=== PATIENT | male | born 1935 | race Caucasian/White ===

== ENCOUNTER 2021-08-14 09:16 | Emergency (ER) | payer MEDICARE, SELFPAY ==
--- NOTE | 2021-08-14 | ECG_ITS ---
Test Reason : weakness Blood Pressure : / mmHG Vent. Rate : 080 BPM Atrial Rate : 080 BPM P-R Int : 148 ms QRS Dur : 106 ms QT Int : 372 ms P-R-T Axes : 003 -40 001 degrees QTc Int : 429 ms Sinus rhythm with Premature atrial complexes Left axis deviation Incomplete right bundle branch block Minimal voltage criteria for LVH, may be normal variant ( [place] product ) Abnormal ECG No previous ECGs available Referred By: Generic ED Physician Electronically Signed By:ANTONIETTA HOWE MD
--- NOTE | ~2021-08-14 | XR_ITS ---
EXAMINATION: XR CHEST CLINICAL INFORMATION: Shortness of breath. COMPARISON: None TECHNIQUE: Frontal view of the chest was obtained. FINDINGS: No significant abnormality is noted involving the heart, lungs, mediastinum, bony thorax or soft tissues. XR/XR chest 1V IMPRESSION: No acute cardiopulmonary process.
[2021-08-14 09:27] VITALS: BP 147/85; BP 152/78; PULSE 77; PULSE 78; RESP 20; TEMP 37.7; O2SAT 96; O2SAT 97; BMI 36.1
[2021-08-14 10:49] LABS: Appearance Urine HAZY; Color Urine YELLOW; Glucose Urine UA 250 MG/DL (NEG); Leukocyte Esterase Urine NEG (NEG); Nitrite Urine NEG (NEG); Specific Gravity - Urine 1.025 (1.005-1.025); UACC Culture Trigger NO; Urine Blood 1+ (NEG); Urine Ketones NEG (NEG); Urine Protein TRACE MG/DL (NEG-TRACE)
[2021-08-14 11:01] LABS: COVID-19 Test Positive (Negative); IDNOW Serial# 16C4AD1C
[2021-08-14 11:14] VITALS: BP 150/72; PULSE 82; RESP 22; O2SAT 96
[2021-08-14 11:17] LABS: Squamous Epithelial Cell Urine 1+ /LPF
--- NOTE | 2021-08-14 11:19 | ED_ITS ---
HPI - Weakness General Chief complaint: Weakness Stated complaint: weakness Time Seen by Provider: 08/14/21 11:01 Source: patient and family Mode of arrival: EMS Limitations: no limitations History of Present Illness HPI Narrative: Patient presents to the emergency department accompanied by his significant other. Presents for evaluation of generalized weakness for 3 days, that is becoming progressively worse with intermittent dizziness, additionally having shortness of breath and dyspnea on exertion. he also has a cough, it is unclear whether it is productive or not. He denies any falls or near syncopal episodes. Denies headaches, vision changes, neck pain, nasal congestion, sore throat, chest pain, palpitations, nausea, vomiting, abdominal pain, dysuria, urinary frequency/ urgency / hesitancy, lower extremity edema. His significant other is feeling well. States that he has been vaccinated for COVID- 19 with [employer] x2. Related Data Allergies Allergy/AdvReac Type Severity Reaction Status Date / Time No Known Allergies Allergy Verified 08/14/21 09:33 Review of Systems Review of Systems: Constitutional: Positive generalized weakness. No weight loss, fever, chills HEENT: No visual loss, blurred vision, double vision. No hearing loss, sneezing, congestion, runny nose or sore throat. Skin: No rash or itching. Cardiovascular: No chest pain, chest pressure or chest discomfort. No palpitations or pedal edema. Respiratory: Positive cough. Positive dyspnea on exertion. Positive shortness of breath Gastrointestinal: No anorexia, nausea, vomiting or diarrhea. No abdominal pain or blood in stool. Genitourinary: No burning micturition. No urinary frequency or incontinence. Neurologic: No headache, dizziness, syncope, unilateral weakness, ataxia, numbness or tingling in the extremities. No change in bowel or bladder control. Musculoskeletal: positive body aches Hematologic: No bleeding or bruising. Lymphatics: No enlarged lymph nodes. Psychiatric:No depression or anxiety. Endocrine:No polyuria or polydipsia. Yes all other systems are reviewed and are negative PMFSH Past Medical History Attestation statement: The following information was validated with the patient. Source: old records reviewed Social History Social History Alcohol intake: never Patient Tobacco Use Status: Never used Tobacco Use of substances other than those prescribed or required for medical reasons: No Advance Directives: Yes Advance Directives Information Provided: Yes Advance Directives on File: No Physical Exam Vital Signs: Vital Signs: Last Vital Signs Temp 99.8 F 08/14/21 09:27 Pulse 88 08/14/21 13:50 Resp 12 08/14/21 13:50 BP 150/72 H 08/14/21 11:14 Pulse Ox 97 08/14/21 13:50 BMI result Body Mass Index 36.1 Vital signs have been reviewed and appeared to be correct. Blood pressure elevated.? Heart rate normal.? Respiration rate normal. Temperature normal.? Oxygen saturation normal. Appearance: Alert.?Oriented to person, place and time. No acute distress.?Normal affect. Eyes: Pupils equal, round and reactive to light.?EOMi. No Nystagmus ENT: Pharynx normal.?? Neck: Normal inspection.? Neck supple.?? CVS: Heart sounds normal. Normal heart rate and rhythm.? Pulses normal.?? Respiratory: No respiratory distress.? Lung sounds clear to auscultation bilaterally? in the upper lobes, diminished at the bilateral bases? Abdomen: Soft and non-tender. Normoactive bowel sounds. Skin: Skin warm and dry.? Normal skin color.? Normal skin turgor.?? Extremities: No lower extremity edema.? No calf ttp? Neuro: Moves all extremities spontaneously. Sensation intact bilaterally. CN II- XII intact. No focal neuro deficits. Ambulates with unsteady steady gait. NIH Stroke Scale Time: 11:10 Level of Consciousness: Alert Level of Consciousness Questions: Answers both questions correctly Level of Consciousness Commands: Performs both tasks correctly Best Gaze: Normal Visual: No visual loss Facial Palsy: Normal Motor Arm (Right): No drift Motor Arm (Left): No drift Motor Leg (Right): No drift Motor Leg (Left): No drift Limb Ataxia: Absent Sensory: Normal Best Language: No aphasia Dysarthia: Normal Extinction and Inattention: No abnormality Score: 0 Course Course Course Narrative: patient is an 85-year-old male with a past medical history of hypertension, presenting to emergency department for evaluation of progressively worsening generalized weakness, intermittent dizziness, shortness of breath on exertion. Will obtain CBC to evaluate for leukocytosis/ anemia, CMP to evaluate for abnormal electrolytes /abnormal renal function/ abnormal hepatic function, EKG and troponin to evaluate for ischemia/ACS. Chest x-ray to evaluate for consol idation/ infiltrate/ mass/ pulmonary congestion. Urinalysis to evaluate for infection. COVID-19 and influenza testing. Overall he appears significantly fatigued, is unable to move some cells on the stretcher without assistance. Medicate with Tylenol for low-grade temp at 99.8 degrees, 1 L normal saline IV. Reevaluation(s) Reevaluation #1: CBC is overall unremarkable, no leukocytosis. Mild thrombocytopenia with platel et count 141. CMP overall unremarkable. Troponin 13.2, EKG reveals sinus rhythm premature atrial complexes, incomplete right bundle branch block, with no prior EKG available for comparison, plan to obtain delta troponin. COVID- 19 testing is positive. Chest x-ray reveals no acute cardiopulmonary process. Urinalysis without sign of infection, glucosuria present at 250, and random serum glucose elevated at 124. Time: 13:10 Reevaluation #2: Patient's repeat troponin 17.2, therefore, less than 50% delta, unlikely to be ACS at this time. Ambulatory O2 trial; patient maintained O2 saturation greater than 95%, required no assistance with ambulation, had a slow but steady gait. I spoke with patient about all findings, patient requesting to be discharged home with his significant other. Stable, feels comfortable with his ability to get around at home. Discussed conservative treatment Tylenol as needed for pain, discussed purchasing pulse oximeter to monitor O2 saturation and reviewed reasons to return to the emergency department. discussed the patient was a candidate for, and it is my recommendation for monoclonal antibody infusion or possible oral therapy treatments, reviewed this at length however, he declines referral for treatment. Time: 14:45 [facility] Medical Records Attestation: I reviewed the patient's medical records. Lab Data Attestation: I reviewed the patient's lab results. Result diagrams: 08/14/21 11:18 08/14/21 11:18 Labs: Lab Results 08/14/21 08/14/21 08/14/21 Range/Units 10:38 10:39 11:18 WBC 7.1 (4.8-10.8) X10*3/uL RBC 4.52 L (4.60-5.80) X10*6/uL Hgb 14.3 (14.0-18.0) g/dl Hct 42.5 (42.0-52.0) % MCV 94.0 (80.0-98.0) fL MCH 31.6 (27.0-33.0) pg MCHC 33.6 (31.0-36.0) g/dl RDW 12.6 (11.0-16.0) % Plt Count 141 L (160-400) X10*3/uL MPV 11.2 (9.4-12.4) fL Immature Gran % (Auto) 0.4 (0.0-0.4) % Neut % (Auto) 78.1 H (45-73) % Lymph % (Auto) 9.1 L (20-40) % [place] % (Auto) 9.3 (2-11) % Eos % (Auto) 2.8 (0-4) % Baso % (Auto) 0.3 (0-2) % Lymph # (Auto) 0.6 L (1.2-4.9) X10*3/uL [place] # (Auto) 0.7 (0.1-1.2) X10*3/uL Eos # (Auto) 0.2 (0.0-0.4) X10*3/uL Baso # (Auto) 0.0 (0.0-0.2) X10*3/uL Abs Immat Gran (auto) 0.03 (0.00-0.03) X10*3/uL Absolute Neuts (auto) 5.5 (2.0-8.3) x10*3/uL Absolute Nucleated RBC 0.000 (0.0-0.012) X10*3/uL Nucleated RBC % (auto) 0.0 (0.0-0.2) /100WBC Sodium (135-145) mmol/L Potassium (3.3-5.1) mmol/L Chloride (96-108) mmol/L Carbon Dioxide (22-29) mmol/L Anion Gap (12-20) BUN (9-16) mg/dL Creatinine (0.5-1.4) mg/dL Estim Creat Clear Calc Estimated GFR Random Glucose (60-115) mg/dL Calcium (8.4-10.2) mg/dL Magnesium (1.6-2.6) mg/dL Total Bilirubin (0.0-1.0) mg/dL AST (5-37) U/L ALT (0-40) U/L Alkaline Phosphatase (39-117) U/L Troponin I High Sens (<3.5-35.0) ng/L Total Protein (6.5-8.0) g/dL Albumin (3.5-5.0) g/dL Urine Color YELLOW Urine Appearance HAZY Urine pH 6.0 (5.0-8.0) Ur Specific [place] 1.025 (1.005-1.025) Urine Protein TRACE (NEG-TRACE) MG/DL Urine Glucose (UA) 250 H (NEG) MG/DL Urine Ketones NEG (NEG) MG/DL Urine Blood 1+ H (NEG) Urine Nitrite NEG (NEG) Ur Leukocyte Esterase NEG (NEG) Urine RBC 1-4 (0) /HPF Urine WBC 1-4 (0-4) /HPF Ur Squamous Epith Cells 1+ /LPF Urine Bacteria NONE /LPF COVID-19 ([facility]) Positive A (Negative) COVID-19 Clin Com See Note 08/14/21 08/14/21 08/14/21 Range/Units 11:18 11:18 14:13 WBC (4.8-10.8) X10*3/uL RBC (4.60-5.80) X10*6/uL Hgb (14.0-18.0) g/dl Hct (42.0-52.0) % MCV (80.0-98.0) fL MCH (27.0-33.0) pg MCHC (31.0-36.0) g/dl RDW (11.0-16.0) % Plt Count (160-400) X10*3/uL MPV (9.4-12.4) fL Immature Gran % (Auto) (0.0-0.4) % Neut % (Auto) (45-73) % Lymph % (Auto) (20-40) % [place] % (Auto) (2-11) % Eos % (Auto) (0-4) % Baso % (Auto) (0-2) % Lymph # (Auto) (1.2-4.9) X10*3/uL [place] # (Auto) (0.1-1.2) X10*3/uL Eos # (Auto) (0.0-0.4) X10*3/uL Baso # (Auto) (0.0-0.2) X10*3/uL Abs Immat Gran (auto) (0.00-0.03) X10*3/uL Absolute Neuts (auto) (2.0-8.3) x10*3/uL Absolute Nucleated RBC (0.0-0.012) X10*3/uL Nucleated RBC % (auto) (0.0-0.2) /100WBC Sodium 135 (135-145) mmol/L Potassium 4.2 (3.3-5.1) mmol/L Chloride 102 (96-108) mmol/L Carbon Dioxide 28 (22-29) mmol/L Anion Gap 9 L (12-20) BUN 13 (9-16) mg/dL Creatinine 0.95 (0.5-1.4) mg/dL Estim Creat Clear Calc 76.3 Estimated GFR > 60 Random Glucose 124 H (60-115) mg/dL Calcium 8.8 (8.4-10.2) mg/dL Magnesium 1.9 (1.6-2.6) mg/dL Total Bilirubin 0.6 (0.0-1.0) mg/dL AST 20 (5-37) U/L ALT 17 (0-40) U/L Alkaline Phosphatase 90 (39-117) U/L Troponin I High Sens 13.2 17.2 (<3.5-35.0) ng/L Total Protein 6.4 L (6.5-8.0) g/dL Albumin 3.9 (3.5-5.0) g/dL Urine Color Urine Appearance Urine pH (5.0-8.0) Ur Specific [place] (1.005-1.025) Urine Protein (NEG-TRACE) MG/DL Urine Glucose (UA) (NEG) MG/DL Urine Ketones (NEG) MG/DL Urine Blood (NEG) Urine Nitrite (NEG) Ur Leukocyte Esterase (NEG) Urine RBC (0) /HPF Urine WBC (0-4) /HPF Ur Squamous Epith Cells /LPF Urine Bacteria /LPF COVID-19 ([facility]) (Negative) COVID-19 Clin Com Imaging Data Chest x-ray: Radiologist's impression: FINDINGS: No significant abnormality is noted involving the heart, lungs, mediastinum, bony thorax or soft tissues. XR/XR chest 1V IMPRESSION: No acute cardiopulmonary process. ECG Data Attestation: I personally reviewed and interpreted this ECG as follows: ECG interpretation date: 08/14/21 ECG interpretation time: 13:05 Prior ECG tracings: not available for review Interpretation: Rate: 80 Rhythm:? sinus rhythm with PAC's, incomplete right bundle-branch block. [place]:? left deviation Normal P waves.? Normal RENÉ.?? Normal QRS complex.?? ST T wave :?? no ST elevation no ST depression. qTC: 429 prior studies:? none available for comparison The study has been interpreted contemporaneously by me. Discharge Plan Discharge Clinical Impression: COVID-19 Patient Disposition: Home, Self-Care Instructions: COVID-19 (Coronavirus Disease 2019) (ED) Additional Instructions: Please contact your primary care provider to make him aware. You should follow up with that their office next week. Please return to the emergency department with any new or worsening symptoms or concerns. Be sure to rest, stay plenty hydrated, use Tylenol as needed for pain, fever, body aches.
[2021-08-14 11:34] LABS: MANUAL DIFF FLAG NO
[2021-08-14 11:37] LABS: Basophils Percent Auto 0.3 % (0-2); Eosinophils Absolute Auto 0.2 X10*3/uL (0.0-0.4); Eosinophils Percent Auto 2.8 % (0-4); Hematocrit 42.5 % (42.0-52.0); Hemoglobin 14.3 g/dl (14.0-18.0); Imm Gran Abs Auto 0.03 X10*3/uL (0.00-0.03); Imm Gran Pct Auto 0.4 % (0.0-0.4); Lymphocytes Absolute Auto 0.6 X10*3/uL (1.2-4.9); Lymphocytes Percent Auto 9.1 % (20-40); Mean Corpuscular HGB Conc 33.6 g/dl (31.0-36.0); Mean Corpuscular Hemoglobin 31.6 pg (27.0-33.0); Mean Platelet Volume 11.2 fL (9.4-12.4); Monocytes Absolute Auto 0.7 X10*3/uL (0.1-1.2); Monocytes Percent Auto 9.3 % (2-11); Neutrophils Absolute Auto 5.5 x10*3/uL (2.0-8.3); Neutrophils Percent Auto 78.1 % (45-73); Platelet Count 141 X10*3/uL (160-400); Red Blood Count 4.52 X10*6/uL (4.60-5.80); Red Cell Distribution Width 12.6 % (11.0-16.0); White Blood Count 7.1 X10*3/uL (4.8-10.8)
[2021-08-14 11:53] LABS: Alanine Aminotransferase 17 U/L (0-40); Albumin Level 3.9 g/dL (3.5-5.0); Alkaline Phosphatase 90 U/L (39-117); Anion Gap 9 (12-20); Aspartate Amino Transferase 20 U/L (5-37); Bilirubin Total 0.6 mg/dL (0.0-1.0); Blood Urea Nitrogen 13 mg/dL (9-16); Calcium 8.8 mg/dL (8.4-10.2); Carbon Dioxide 28 mmol/L (22-29); Chloride 102 mmol/L (96-108); Creatinine Clr Calc Pharmacy 76.3; Estimated Glomerular Filt Rate > 60; Glucose Random 124 mg/dL (60-115); Magnesium 1.9 mg/dL (1.6-2.6); Potassium 4.2 mmol/L (3.3-5.1); Sodium 135 mmol/L (135-145); Total Protein 6.4 g/dL (6.5-8.0)
[2021-08-14 12:33] LABS: Troponin-I High Sensitivity 13.2 ng/L (<3.5-35.0)
[2021-08-14 13:50] VITALS: PULSE 88; RESP 12; O2SAT 97
[2021-08-14] MEDS: 0.9 % Sodium Chloride 1,000 ML 999 ML IV (13:54)
[2021-08-14] MEDS: dexAMETHasone 6 MG TABLET PO (13:55)
[2021-08-14] MEDS: Acetaminophen 325 MG TABLET 975 MG PO (13:55)
--- NOTE | 2021-08-14 14:07 | PC.NURSE ---
PT AMBULATED WITH STANDBY ASSIST FROM STAFF. WEAK BUT TOLERABLE, GAIT APPROPRIATE. PT SAO2 REMAINED 95% AND UP TO 97%
[2021-08-14 14:43] LABS: Troponin-I High Sensitivity 17.2 ng/L (<3.5-35.0)
== END 2021-08-14 16:39 | disposition home or self-care (01) ==
PROVIDERS: Nurse Practitioner Family; Emergency Provider Emergency Medicine Emergency Medical Services; PCP Family Medicine
DX: U07.1 COVID-19 (principal); R53.1 Weakness; R42 Dizziness and giddiness; R29.700 NIHSS score 0; R05.9 Cough, unspecified; R06.02 Shortness of breath; Z79.899 Other long term (current) drug therapy
CPT/HCPCS: 36415; 71045; 80053; 81001; 83735; 84484; 85025; 87635; 93005; 96360; 99284; 99285; J8540

== ENCOUNTER 2023-12-08 12:21 | Emergency (ER) | payer MEDICARE, SELFPAY ==
--- NOTE | ~2023-12-08 | XR_ITS ---
EXAMINATION: XR HAND, RIGHT CLINICAL INFORMATION: Fall. Skin tear. COMPARISON: None available. TECHNIQUE: PA, lateral, and oblique views of the right hand. FINDINGS: No acute fracture or dislocation. No radiopaque foreign body or abnormal soft tissue calcification. Severe joint space narrowing with bony remodeling and marginal osteophytes at the triscaphe and first carpometacarpal joints. Additional joint space narrowing with marginal osteophytes throughout the metacarpophalangeal and interphalangeal joints. Small central erosions at the second, third, and fifth distal interphalangeal joints which could indicate a degree of erosive osteoarthritis. XR/XR hand RT min 3V IMPRESSION: 1. No acute fracture or dislocation. No radiopaque foreign body or abnormal soft tissue calcification. 2. 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 Small central erosions at the second, third, and fifth distal interphalangeal joints which could indicate a degree of erosive osteoarthritis.
--- NOTE | ~2023-12-08 | CT_ITS ---
EXAMINATION: CT CERVICAL SPINE WITHOUT CONTRAST CLINICAL INFORMATION: Fall. COMPARISON: None available. TECHNIQUE: Noncontrast CT of the cervical spine was performed. This CT examination was performed using dose optimization techniques as appropriate, variously including the following: *Automated exposure control *Adjustment of mA and/or kV according to patient size (this includes techniques or standardized protocols for targeted exams where dose is matched to indication/reason for exam; i.e. extremities or head) *Use of iterative reconstruction technique DLP: 474 mGy-cm FINDINGS: The vertebral bodies and facet joints are anatomically aligned. Vertebral body heights are preserved. There is significant degenerative disc disease throughout the majority of the cervical spine characterized by intervertebral disc space narrowing, endplate sclerosis, and large bridging anterior osteophytes. The C1-C2 relationship is anatomic. The dens is intact. The prevertebral soft tissue is normal in appearance. There is no acute cervical spine fracture. There is multilevel facet arthropathy. The lung apices are clear. The visualized thyroid gland is normal in appearance. CT/CT cervical spine wo IV con IMPRESSION: No acute osseous cervical spine abnormality. There is significant multilevel degenerative disease. Fleischner guidelines were followed.
--- NOTE | ~2023-12-08 | CT_ITS ---
EXAMINATION: CT HEAD WITHOUT CONTRAST CLINICAL INFORMATION: Fall. Hematoma. COMPARISON: None available. TECHNIQUE: Contiguous axial imaging was performed from the skull base to vertex without intravenous administration of contrast. This CT examination was performed using dose optimization techniques as appropriate, variously including the following: *Automated exposure control *Adjustment of mA and/or kV according to patient size (this includes techniques or standardized protocols for targeted exams where dose is matched to indication/reason for exam; i.e. extremities or head) *Use of iterative reconstruction technique DLP: 1281 mGy-cm FINDINGS: There is no acute intracranial hemorrhage. There is no evidence of acute/subacute cerebral or cerebellar infarction. There is no midline shift or mass effect. There is mild microvascular ischemic change. There is a mild global cerebral volume loss. No extra-axial fluid collection. No hydrocephalus. The visualized orbits are normal in appearance. The calvarium is intact. The mastoid air cells are clear. Visualized paranasal sinuses are well aerated. There is a large right parietal scalp hematoma. CT/CT head/brain wo IV con IMPRESSION: No acute intracranial hemorrhage. Mild microvascular ischemic change. Mild global cerebral volume loss. Large right parietal scalp hematoma.
[2023-12-08 12:39] VITALS: BP 160/80; BP 175/85; PULSE 71; RESP 18; TEMP 36.4; O2SAT 95; O2SAT 96; BMI 32.9
--- NOTE | 2023-12-08 12:47 | ED_ITS ---
HPI - Fall General Chief Complaint: Fall Stated Complaint: Fall Time Seen by Provider: 12/08/23 12:32 Source: patient, EMS, RN notes reviewed and old records reviewed Mode of arrival: EMS History of Present Illness ED Provider: Altagracia Long PA-C HPI Narrative: 87-year-old male with no significant past medical history presenting to ED via EMS s/p mechanical trip and fall down a couple stairs backwards hitting head on rock. Patient denies complaints at present. Denies taking anticoagulation or LOC. Denies symptoms prior to fall. Denies neck/back pain, CP/SOB, abdominal pain. Related Data Allergies Allergy/AdvReac Type Severity Reaction Status Date / Time No Known Allergies Allergy Verified 12/08/23 12:40 Review of Systems Review of Systems: Constitutional: No Fever, No Chills ENT/Mouth: No Ear Pain, No Nasal Congestion Cardiovascular: No Chest Pain, No SOB Respiratory: No Cough Gastrointestinal: No Nausea, No Vomiting, No Abdominal pain Genitourinary: No Urinary Incontinence/retention, No Flank Pain Musculoskeletal: No joint pain, No Myalgias, No Joint Swelling Skin: No Skin Lesions, No rash Neuro: No Weakness, No Numbness, No Paresthesias, +head injury Yes all other systems are reviewed and are negative Constitutional: Constitutional: Reports as per HPI Neurologic: Denies Abnormal speech present [facility] Past Medical History Attestation statement: The following information was validated with the patient. Source: old records reviewed Social History Social History Alcohol intake: never Patient Tobacco Use Status: Never used Tobacco Smoked in Last 30 Days: No Use of substances other than those prescribed or required for medical reasons: No Advance Directives: No Advance Directives Information Provided: Yes Physical Exam Vital Signs: Vital Signs: Last Vital Signs Temp 96.0 F L 12/08/23 15:34 Pulse 64 12/08/23 15:34 Resp 17 12/08/23 15:34 BP 143/79 H 12/08/23 15:34 Pulse Ox 97 12/08/23 15:34 O2 Del Method Room Air 12/08/23 15:34 BMI result Body Mass Index 32.9 Const: General: cooperative, healthy appearing and no acute distress Orientation/consciousness: patient oriented x3 Limitations: no limitations HEENT: Other: + hematoma to right posterior scalp Head: No [place]'s sign and No raccoon eyes Ears: hearing grossly normal bilaterally General nose exam: Normal external nose present Face and sinus: Yes normal facial exam Throat: Yes posterior oropharynx normal, Yes tonsils normal and Yes uvula midline Eyes: General: appearance normal, both eyes and all related structures Pupils: Equal, round and reactive pupils present EOM: EOMs intact bilaterally Neck: Other: C-collar in place Neck: Yes normal visual inspection, Yes no meningeal signs and No anterior neck swelling Resp: Effort & Inspection: normal respiratory effort and no respiratory distress Auscultation: clear to auscultation bilaterally Cardio: Rate: regular rate Heart sounds: S1 normal heart sound present and S2 normal heart sound present GI: Inspection: Yes normal to inspection Palpation (GI): Soft to palpation, nontender, no guarding and not rigid : General: Yes no CVA tenderness Back/Spine/Pelvis: Back: no CVA tenderness Skin: Other: Small abrasion to left 5th digit. + skin tear to right hand volar aspect. Full range of motion intact. [id number] opposition intact. Rashes: no rashes Neuro: General: patient oriented x3, tone normal, moves all extremities, no meningeal signs, no focal motor deficits and CN's II-XI intact bilaterally Cranial nerves: Yes CN's II-XII intact bilaterally and Yes Equal, round and reactive pupils present Cognition (Neuro): normal cognition Speech: No Abnormal speech present Motor exam (neuro): 5/5 motor strength present throughout and no tremor noted Extrem: General: Yes normal to inspection Course Course Course Narrative: 1506--CT head/brain wo IV con IMPRESSION: No acute intracranial hemorrhage. Mild microvascular ischemic change. Mild global cerebral volume loss. Large right parietal scalp hematoma. CT cervical spine wo IV con IMPRESSION: No acute osseous cervical spine abnormality. There is significant multilevel degenerative disease. Fleischner guidelines were followed. XR hand RT min 3V IMPRESSION: 1. No acute fracture or dislocation. No radiopaque foreign body or abnormal soft tissue calcification. 2. 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 Small central erosions at the second, third, and fifth distal interphalangeal joints which could indicate a degree of erosive osteoarthritis. C-collar cleared. Patient will be given Tdap in the ED prior to discharge. Results discussed with patient including worrisome signs and symptoms and strict return precautions, and when to return to the emergency department. They verbalized understanding and feel safe for discharge at this time. Medications Administered Discontinued Medications Generic Name Dose Route Start Last Admin Trade Name Freq PRN Reason Stop Dose Admin Diphtheria/Tetanus/Acell Pertussis 0.5 ml 12/08/23 15:08 12/08/23 15:26 Diphth,Pertus(Acell),Tet Adult 0.5 Ml Syringe IM 12/08/23 15:09 0.5 ml .ONCE ONE Administration Medical Decision Making Medical Decision Making MDM Narrative: 87-year-old male with no significant past medical history presenting to ED via EMS s/p mechanical trip and fall down a couple stairs backwards hitting head on rock. On exam vital signs stable, NAD, nontoxic appearing, C-collar in place, physical exam as noted above with hematoma noted to posterior scalp and skin tear to right hand. Concern for ICH vs fractures. Low suspicion for infectious etiology/orthostasis And: CT, x-ray Please refer to course for remaining clinical decision making, interpretation of labs/imaging results, and discussions with consultants and/or family members. Differential Diagnosis Differential Diagnoses: The differential diagnosis associated with the presentation includes As above Admission/Observation Consideration of admission/observation: Escalation of care including admission/observation considered Lab Data [facility] Lab Attestation statement: I reviewed the patient's lab results. Independent Interpretation I performed an independent interpretation of an: CT Scan Radiology Impression Discussion of test interpretation with radiology: I have reviewed the radiologist's reading. Independent Historian Clinical information obtained from an independent historian. History obtained from or confirmed by: EMS External Record Review External record reviewed: Inpatient record, Office record, Outpatient record, Prior outpatient labs, Prior outpatient radiology, Primary care record and Outside ED record Tests considered The following testing was considered but not selected: As above Discharge Plan Discharge Clinical Impression: Hematoma of right parietal scalp, Skin tear of right upper extremity, Fall Patient Disposition: Home, Self-Care Instructions: Scalp Contusion in Adults (ED), Fall Prevention (ED) Additional Instructions: You have a scalp hematoma. No fractures or bleeding. Ice. 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
[2023-12-08 15:16] VITALS: BP 143/79; PULSE 64; RESP 17; TEMP 35.6; O2SAT 97
[2023-12-08] MEDS: Diphth,Pertus(ACell),Tet Adult 0.5 ML SYRINGE IM (15:26)
[2023-12-08 15:34] VITALS: BP 143/79; PULSE 64; RESP 17; TEMP 35.6; O2SAT 97
== END 2023-12-08 15:34 | disposition home or self-care (01) ==
PROVIDERS: Emergency Provider Emergency Medicine
DX: S00.03XA Contusion of scalp, initial encounter (principal); S41.111A Laceration without foreign body of right upper arm, initial encounter; R51.9 Headache, unspecified; M54.2 Cervicalgia; M79.641 Pain in right hand; W10.8XXA Fall (on) (from) other stairs and steps, initial encounter; Y93.89 Activity, other specified; Y92.89 Other specified places as the place of occurrence of the external cause; Y99.8 Other external cause status; Z23 Encounter for immunization
CPT/HCPCS: 70450; 72125; 73130; 90471; 90715; 99284

== ENCOUNTER 2023-12-26 14:51 | Emergency (ER) | payer MEDICARE, SELFPAY ==
--- NOTE | ~2023-12-26 | XR_ITS ---
EXAMINATION: XR CHEST CLINICAL INFORMATION: Shortness of breath COMPARISON: Chest x-ray on 08/14/2021 TECHNIQUE: Frontal view of the chest was obtained. FINDINGS: No significant abnormality is noted involving the heart, lungs, mediastinum, bony thorax or soft tissues. XR/XR chest 1V IMPRESSION: Unremarkable examination. Electronically signed by: Margie Madrigal MD 12/26/2023 04:01 PM EDT RP
--- NOTE | 2023-12-26 15:12 | ED_ITS ---
HPI - General Adult General Chief complaint: General Medical Stated complaint: DIFF BREATHING ON EXER,99%RA,COUGH PER EMS Time Seen by Provider: 12/26/23 15:12 History of Present Illness ED Provider: Ana Lilia LAWRENCE narrative: The patient is 88-year-old male. He says that he lives in [place] but spends a lot of time in [place] with his significant other. He has a primary care doctor at the [facility] on [facility] in [place]. The patient lives primarily with his partner who lives in [place]. According to his partner the patient has been much less active and energetic over the last few months. He was recently seen at his primary care doctor's office and was advised to do physical therapy. The patient is not currently on any medications. He has previously been on bisoprolol and gabapentin but he is not taking them currently. Today was the first day that the patient complained of any shortness of breath. Related Data Previous Rx's ?Medication ?Instructions ?Recorded albuterol sulfate 90 mcg/actuation 2 puff inhalation Q4-6H PRN 12/26/23 aerosol inhaler shortness of breath or wheezing #8.5 grams Allergies Allergy/AdvReac Type Severity Reaction Status Date / Time No Known Allergies Allergy Verified 12/26/23 15:32 Review of Systems 2 Review of Systems: Yes all other systems are reviewed and are negative [facility] Social History Social History Alcohol intake: never Patient Tobacco Use Status: Never used Tobacco Smoked in Last 30 Days: No Use of substances other than those prescribed or required for medical reasons: No Advance Directives: No Advance Directives Information Provided: No Physical Exam ED Vital Signs: Vital Signs - 24 hr 12/26/23 15:29 12/26/23 15:33 12/26/23 16:42 Temperature 98.5 F 98.0 F Pulse Rate 68 68 Respiratory Rate 18 12 Blood Pressure 152/81 H 150/73 H Pulse Oximetry 99 98 Oxygen Delivery Method Room Air Room Air 12/26/23 19:40 12/26/23 20:02 Temperature 97.6 F Pulse Rate 75 76 Respiratory Rate 18 21 H Blood Pressure 146/66 H Pulse Oximetry 99 Oxygen Delivery Method Room Air BMI result Body Mass Index 31.9 Const Other: The patient is an 88-year-old male who has a somewhat apprehensive demeanor but does not seem in acute distress. HENMT Other: Face is symmetrical. Mucous membranes moist. Eyes Other: Pupils are round equal, conjunctivae clear, extraocular movements intact Neck Neck: Yes no JVD Resp Effort & Inspection: normal respiratory effort Auscultation: clear to auscultation bilaterally Cardio Rate: regular rate Heart sounds: S1 normal heart sound present and S2 normal heart sound present GI Other: Abdomen is soft and nontender Skin Other: Skin is pale and dry Neuro Other: The patient is awake and alert. Cranial nerves are grossly intact. He moves his extremities symmetrically. His exam is nonfocal Extrem Other: Possibly some trace edema of the lower extremities. No calf asymmetry or tenderness Medications Administered Discontinued Medications Generic Name Dose Route Start Last Admin Trade Name Freq PRN Reason Stop Dose Admin Albuterol Sulfate 4 puff 12/26/23 19:14 12/26/23 19:26 Albuterol Sulfate 90 Mcg 8 Gm Inhaler INHALE 12/26/23 19:15 4 puff ONCE ONE Administration Medical Decision Making Medical Decision Making [facility] Narrative: The patient is an 88-year-old male whose girlfriend called 911 today because he complained of being short of breath. According to the girlfriend the patient has been doing poorly for the last several months. He has seemed to have very little energy and seems to do very little. The patient was seen recently at his primary care doctor's office. The plan was for referral to Cardiology and Neurology. Also visiting nurses might evaluate the patient for possible in-home physical therapy. The patient's EKG shows a right bundle branch block. This is a new finding. I do not think he has any acute findings however. Chest x-ray is negative. CBC shows normal white count and differential. There is some mild anemia. Metabolic testing is unremarkable with normal renal function and normal LFTs. CRP is undetectable. Troponin is negative. BNP is normal. TSH is normal. D- dimer is 52. Age adjusted this is a normal D-dimer. The patient tests positive for COVID however. I explained to the patient and his partner that he seems to have COVID. It is very hard to determine how long he has had COVID for however because he seems to have been doing somewhat poorly over the last few months. Given the lack of clarity as to the onset of symptoms I do not think Paxlovid is indicated. The patient will be discharged to return home with general viral instructions and to follow up with his PCP. Return if worse. Lab Data 12/26/23 16:07 12/26/23 16:07 Labs: Lab Results 12/26/23 12/26/23 12/26/23 Range/Units 16:07 16:14 18:16 WBC 5.1 (4.8-10.8) X10*3/uL RBC 3.98 L (4.60-5.80) X10*6/uL Hgb 12.9 L (14.0-18.0) g/dl Hct 38.3 L (42.0-52.0) % MCV 96.2 (80.0-98.0) fL MCH 32.4 (27.0-33.0) pg MCHC 33.7 (31.0-36.0) g/dl RDW 13.3 (11.0-16.0) % Plt Count 204 D (160-400) X10*3/uL MPV 10.8 (9.4-12.4) fL Immature Gran % (Auto) 0.2 (0.0-0.4) % Neut % (Auto) 57.1 (45-73) % Lymph % (Auto) 29.0 (20-40) % Kershaw % (Auto) 9.6 (2-11) % Eos % (Auto) 3.1 (0-4) % Baso % (Auto) 1.0 (0-2) % Lymph # (Auto) 1.5 (1.2-4.9) X10*3/uL [place]haw # (Auto) 0.5 (0.1-1.2) X10*3/uL Eos # (Auto) 0.2 (0.0-0.4) X10*3/uL Baso # (Auto) 0.1 (0.0-0.2) X10*3/uL Abs Immat Gran (auto) 0.01 (0.00-0.03) X10*3/uL Absolute Neuts (auto) 2.9 (2.0-8.3) x10*3/uL Absolute Nucleated RBC 0.000 (0.0-0.012) X10*3/uL Nucleated RBC % (auto) 0.0 (0.0-0.2) /100WBC D-Dimer High Sensitivty 252 NG/ML VBG pH 7.37 (7.32-7.43) VBG pCO2 50 mmHg VBG pO2 36 mmHg VBG HCO3 29 H (22-26) mmol/L VBG O2 Saturation 62.0 % VBG Base Excess 3.5 mmol/L Sodium 143 (135-145) mmol/L Potassium 3.8 (3.3-5.1) mmol/L Chloride 108 (96-108) mmol/L Carbon Dioxide 27 (22-29) mmol/L Anion Gap 12 (12-20) BUN 18 H (9-16) mg/dL Creatinine 0.81 (0.5-1.4) mg/dL Estim Creat Clear Calc 79.5 Estimated GFR > 60 Random Glucose 89 (60-115) mg/dL Calcium 9.2 (8.4-10.2) mg/dL Magnesium 2.1 (1.6-2.6) mg/dL Total Bilirubin 0.5 (0.0-1.0) mg/dL Direct Bilirubin 0.2 (0.0-0.5) mg/dL AST 14 (5-37) U/L ALT 16 (0-40) U/L Alkaline Phosphatase 111 (39-117) U/L Troponin I High Sens 7.2 8.4 (<3.5-35.0) ng/L C-Reactive Protein < 0.10 (< or = 0.50) mg/dL B-Natriuretic Peptide 97 (<100) pg/mL Total Protein 6.1 L (6.5-8.0) g/dL Albumin 3.7 (3.5-5.0) g/dL TSH 1.55 (0.32-4.0) uIU/mL Ethyl Alcohol < 10 mg/dL Influenza Type A (PCR) NEGATIVE (Negative) Influenza Type B (PCR) NEGATIVE (Negative) RSV RNA Qual (PCR) NEGATIVE (Negative) SARS-CoV-2 RNA (RT-PCR) POSITIVE A (Negative) Discharge Plan Discharge Clinical Impression: COVID-19, Shortness of breath Patient Disposition: Home, Self-Care Additional Instructions: You have tested positive for COVID today. On the bright side, other than testing positive for COVID your testing is quite reassuring. There is no sign of a heart attack or heart failure. Your thyroid function is normal. Your kidney function is good. Since it is not clear how long you have had COVID for you would not be a candidate for the anti COVID medication Paxlovid. Paxlovid has to be started within 5 days of the onset of symptoms. Additionally Paxlovid is ultimately proving not to be that effective. Rest and take it easy for the next few days. You may use the albuterol prescribed to help with any coughing or mild shortness of breath. Please follow through with your primary care doctor's plan to follow up with a neurologist and a fire department marine engineer. Also to work with the visiting nurses and possibly schedule physical therapy. Emergency room if you feel significantly worse. Prescriptions: New albuterol sulfate 90 mcg/actuation HFA aerosol inhaler 2 puff inhalation Q4-6H PRN (Reason: shortness of breath or wheezing) Qty: 8.5 0RF Referrals: Chandana Thornton MD [Primary Care Provider] - (COVID, shortness of breath, decreased energy and activity) Interventions: ED Discharge Assessment Last Done: 12/26/23 20:02 Discharge Date/Time: 12/26/23 20:00 Print Language: [place]
--- NOTE | 2023-12-26 15:17 | ECG_ITS ---
Test Reason : SOB Blood Pressure : / mmHG Vent. Rate : 063 BPM Atrial Rate : 063 BPM P-R Int : 160 ms QRS Dur : 122 ms QT Int : 418 ms P-R-T Axes : 034 -38 -08 degrees QTc Int : 427 ms Normal sinus rhythm with sinus arrhythmia Left axis deviation Right bundle branch block Abnormal ECG When compared with ECG of 14-AUG-2021 09:34, Premature atrial complexes are no longer Present Referred By: Collins Sung Electronically Signed By:OLEG RANDALL
[2023-12-26 15:29] VITALS: BP 130/70; BP 152/81; PULSE 68; PULSE 99; RESP 18; O2SAT 99; BMI 31.9
[2023-12-26 15:33] VITALS: TEMP 36.9
[2023-12-26 16:12] LABS: MANUAL DIFF FLAG NO
[2023-12-26 16:13] LABS: Basophils Absolute Auto 0.1 X10*3/uL (0.0-0.2); Eosinophils Absolute Auto 0.2 X10*3/uL (0.0-0.4); Eosinophils Percent Auto 3.1 % (0-4); Hematocrit 38.3 % (42.0-52.0); Hemoglobin 12.9 g/dl (14.0-18.0); Imm Gran Abs Auto 0.01 X10*3/uL (0.00-0.03); Imm Gran Pct Auto 0.2 % (0.0-0.4); Lymphocytes Absolute Auto 1.5 X10*3/uL (1.2-4.9); Mean Corpuscular HGB Conc 33.7 g/dl (31.0-36.0); Mean Corpuscular Hemoglobin 32.4 pg (27.0-33.0); Mean Corpuscular Volume 96.2 fL (80.0-98.0); Mean Platelet Volume 10.8 fL (9.4-12.4); Monocytes Absolute Auto 0.5 X10*3/uL (0.1-1.2); Monocytes Percent Auto 9.6 % (2-11); Neutrophils Absolute Auto 2.9 x10*3/uL (2.0-8.3); Neutrophils Percent Auto 57.1 % (45-73); Platelet Count 204 X10*3/uL (160-400); Red Blood Count 3.98 X10*6/uL (4.60-5.80); Red Cell Distribution Width 13.3 % (11.0-16.0); White Blood Count 5.1 X10*3/uL (4.8-10.8)
[2023-12-26 16:18] LABS: VBG Base Excess 3.5 mmol/L; VBG HCO3 29 mmol/L (22-26); VBG pCO2 50 mmHg; VBG pH 7.37 (7.32-7.43); VBG pO2 36 mmHg
[2023-12-26 16:30] LABS: Venous Blood Gas Refer to POC result
[2023-12-26 16:41] LABS: B Type Natriuretic Peptide 97 pg/mL (<100)
[2023-12-26 16:42] VITALS: BP 150/73; PULSE 68; RESP 12; TEMP 36.7; O2SAT 98
[2023-12-26 16:42] LABS: Troponin-I High Sensitivity 7.2 ng/L (<3.5-35.0)
[2023-12-26 16:56] LABS: Thyroid Stimulating Hormone 1.55 uIU/mL (0.32-4.0)
[2023-12-26 17:04] LABS: Influenza A PCR NEGATIVE (Negative); Influenza B PCR NEGATIVE (Negative); Resp Syncy Virus RNA Qual PCR NEGATIVE (Negative); SARS COV2 PCR INHOUSE POSITIVE (Negative)
[2023-12-26 17:07] LABS: Alanine Aminotransferase 16 U/L (0-40); Albumin Level 3.7 g/dL (3.5-5.0); Alkaline Phosphatase 111 U/L (39-117); Anion Gap 12 (12-20); Aspartate Amino Transferase 14 U/L (5-37); Bilirubin Direct 0.2 mg/dL (0.0-0.5); Bilirubin Total 0.5 mg/dL (0.0-1.0); Blood Urea Nitrogen 18 mg/dL (9-16); C Reactive Protein < 0.10 mg/dL (< or = 0.50); Calcium 9.2 mg/dL (8.4-10.2); Carbon Dioxide 27 mmol/L (22-29); Chloride 108 mmol/L (96-108); Creatinine Clr Calc Pharmacy 79.5; Estimated Glomerular Filt Rate > 60; Ethanol < 10 mg/dL; Glucose Random 89 mg/dL (60-115); Magnesium 2.1 mg/dL (1.6-2.6); Potassium 3.8 mmol/L (3.3-5.1); Sodium 143 mmol/L (135-145); Total Protein 6.1 g/dL (6.5-8.0)
[2023-12-26 18:45] LABS: D Dimer High Sensitivity 252 NG/ML
[2023-12-26 18:50] LABS: Troponin-I High Sensitivity 8.4 ng/L (<3.5-35.0)
--- NOTE | 2023-12-26 19:00 | PC.NURSE ---
received report from Isis ROCHA, assume care of pt at this time
[2023-12-26] MEDS: Albuterol Sulfate 90 MCG 8 GM INHALER 4 PUFF INHALE (19:26)
[2023-12-26 19:40] VITALS: PULSE 75; RESP 18; O2SAT 99
[2023-12-26 20:02] VITALS: BP 146/66; PULSE 76; RESP 21; TEMP 36.4; O2SAT 99
== END 2023-12-26 20:00 | disposition home or self-care (01) ==
PROVIDERS: Emergency Provider Emergency Medicine; PCP Family Medicine
DX: U07.1 COVID-19 (principal); R06.02 Shortness of breath; D64.9 Anemia, unspecified; R05.9 Cough, unspecified
CPT/HCPCS: 0241U; 36415; 71045; 80048; 80076; 80307; 82803; 83735; 83880; 84443; 84484; 85025; 85379; 86140; 93005; 94640; 99284; 99285

== ENCOUNTER 2025-02-19 18:42 | Emergency (ER) | payer MEDICARE, SELFPAY ==
--- OUTSIDE RECORDS SUMMARY | 2025-02-14 23:59 | XMS_ITS | Continuity of Care Document ---
Author Organization [facility] ter Address [address] [place] [id number]- Care Team Providers Care Nuclear Physics Professor Name Role Phone Hillary MENCHACA, Chandana Arambula Primary Care Physician Encounter [facility] Date(s): 01/15/25 - 02/14/[address] [id number]- Encounter Type: Triage Allergies, Adverse Reactions, Alerts No Known Allergies Immunizations Given and Recorded Vaccine Date Status Refusal Reason influenza virus vaccine, inactivated 02/09/24 Migue rded influenza virus vaccine, inactivated 03/08/19 Migue rded influenza virus vaccine, inactivated 1 02/08/18 Re corded influenza virus vaccine, inactivated 2 02/16/17 Re corded influenza virus vaccine, inactivated 3 02/18/16 Re corded influenza virus vaccine, inactivated 01/31/15 Migue rded influenza virus vaccine, inactivated 4 01/09/13 Gi brian influenza virus vaccine, inactivated 5 01/23/11 Gi brian SARS-CoV-2 (COVID-19) mRNA BNT-162b2 vac 08/23/20 Recorded SARS-CoV-2 (COVID-19) mRNA BNT-162b2 vac 08/02/20 Recorded Fluvirin (oldterm) 6 02/16/12 Given tetanus-diphtheria toxoids (Td) 7 05/11/04 Given Pneumococcal Vaccine (oldterm) 05/11/04 Given 1Result Comment: [02/10/2018] high does 2Result Comment: [03/10/2017] Fluad [id number] [facility] 3Result Comment: [02/25/2016] Given at [facility] [place] 4Result Comment: [01/09/2013] vis given 5Admin Note: domestic violence counselor [facility] [place] 6Admin Note: fabby 7Admin Note: [employer] vim 03/12/08 Medications carbidopa-levodopa 25 mg-100 mg oral tablet See Instructions, 0 Refills, Maintenance, 05/18/24 10:52:00 AM EST, Partial fill upon patient request if the prescription is for a schedule II opioid drug. Start Date: 05/18/24 Status: Ordered Medication Dispense Status: Completed Total Allowed Fills: 1 Fills Dispensed: 0 carbidopa-levodopa 25 mg-100 mg oral tablet 90 tablet, 0 Refill(s), 0 Refills, 05/18/24 10:53:00 AM EST, Partial fill upon patient request if the prescription is for a schedule II opioid drug. Start Date: 05/18/24 Status: Ordered Medication Dispense Status: Completed Total Allowed Fills: 1 Fills Dispensed: 0 mirtazapine 15 mg oral tablet 1 tablet = 15 mg, By Mouth, Daily at bedtime, # 30 tablet, 11 Refills, Maintenance, 10/19/24 4:22:00PM EDT, Tablet, [id number], Partial fill upon patient request if the prescription is fora schedule II opioid drug., 182, cm, 10/19/24 15:58:00 EDT, Height Start Date: 10/19/24 Status: Ordered Medication Dispense Status: Completed Quantity: 30.0 Unit: tablet Total Allowed Fills: 12 Fills Dispensed: 0 Indications: Unspecified mood [affective] disorder; Saw [place] 2 times a day, 0 Refills, Maintenance, 11/26/20 10:12:00 AM EDT, Partial fill upon patient request ifthe prescription is for a schedule II opioid drug. Start Date: 11/26/20 Status: Ordered Medication Dispense Status: Completed Total Allowed Fills: 1 Fills Dispensed: 0 Problem List Condition Confirmation Course Effective Dates Status Health St atus Informant Degenerative arthritis of knee Confirmed Active Balance disorder Confirmed Active Obese class I Confirmed Active Parkinsonism Confirmed Active Social History Social History Type Response Smoking Status Never smoker entered on: 11/16/13 Sex Male Sex Representation Male (finding) Patient Care team information Care Team Personnel Name: Chandana Thornton MD Position: S Physician - Primary Care Member Role: PCP [address]: [address] [place] [id number]- Telecom: Care Team Related Persons Name: CALLY WU Name: DALTON SWANN Insurance Providers Guarantor name: LAUREL REYES [place] Plan Information #: 1 Payer: [employer] [facility] Payer Identifier: NA Member Number: [id number] Group Number: [id number] Subscriber Identifier: NA Relationship to Subscriber: self Coverage Type: Medicare HMO Coverage Verification Date: NA Telecom: NA Address: NA
--- NOTE | ~2025-02-19 | CT_ITS ---
CLINICAL HISTORY: fall CT head without contrast Comparison: CT/SR - CT HEAD WITHOUT IV CONTRAST - 12/08/23 14:06 EDT Findings: No intra-axial mass, midline shift, hydrocephalus, or acute hemorrhage. Age appropriate cerebral volume loss. Patchy low-density within the periventricular and subcortical white matter. There is no sinus or mastoid fluid. The orbits are within normal limits. No skull fracture. IMPRESSION: 1. No acute intracranial findings. This document has been electronically signed by: Nicolle Alex MD on 02/19/2025 19:39:25
--- NOTE | ~2025-02-19 | XR_ITS ---
CLINICAL HISTORY: fall 3 views lumbar spine Comparison: None provided Findings: Normal alignment. No acute fractures or dislocation. Multilevel disc space narrowing and endplate osteophyte formation, as well as facet hypertrophy. IMPRESSION: No acute findings. This document has been electronically signed by: Nicolle Alex MD on 02/19/2025 19:40:41
--- NOTE | ~2025-02-19 | CT_ITS ---
CLINICAL HISTORY: fall CT cervical spine without contrast Comparison: CT/SR - CT CERVICAL SPINE WITHOUT IV CONTRAST - 12/08/23 14:06 EDT Findings: Normal vertebral body alignment. Multilevel disc space narrowing and endplate osteophyte formation, as well as facet hypertrophy. No acute fractures or dislocations. No acute findings on limited view of the intracranial contents. Soft tissues of the neck are normal. No consolidation or effusion at the lung apices. IMPRESSION: No acute findings. This document has been electronically signed by: Nicolle Alex MD on 02/19/2025 20:13:47
--- NOTE | ~2025-02-19 | XR_ITS ---
CLINICAL HISTORY: fall, pain,? fracture 7 view, pelvis and bilateral hip Comparison: None provided Findings: No acute fracture or dislocation. Periarticular osteophyte formation at the bilateral hip joints. The soft tissues are unremarkable. IMPRESSION: No acute findings. This document has been electronically signed by: Nicolle Alex MD on 02/19/2025 20:22:52
[2025-02-19 18:52] VITALS: BP 131/78; PULSE 93; RESP 18; TEMP 37.1; O2SAT 98; BMI 30.5
--- NOTE | 2025-02-19 19:10 | ED_ITS ---
HPI - General Adult General Chief complaint: Fall Stated complaint: Fall on 02/17, having lower back pain Time Seen by Provider: 02/19/25 20:57 Source: patient and family Limitations: no limitations History of Present Illness ED Provider: Rosie Balderas PA-C HPI narrative: 89-year-old male with a history of Parkinson's disease with the associated gait instability who uses a cane to ambulate at home, presents after mechanical fall. Patient lost his balance and fell backwards, he hit his head on the wall, then hit his buttocks on the tub. There was no loss consciousness, the patient is not on a blood thinner. The incident occurred 2 days ago. Patient is here secondary to ongoing back and hip pain. The patient has been ambulatory since the fall. Related Data Previous Rx's ?Medication ?Instructions ?Recorded albuterol sulfate 90 mcg/actuation 2 puff inhalation Q 4-6H PRN 12/26/23 aerosol inhaler shortness of breath or wheez ing #8.5 grams Allergies Allergy/AdvReac Type Severity Reaction Status Date / Time No Known Allergies Allergy Verified 02/19/25 18:55 Review of Systems Review of Systems: Yes all other systems are reviewed and are negative Constitutional: Constitutional: Denies fatigue, Denies fever(s) and Denies headache(s) ENT: Denies dizziness and Denies headache(s) Cardiovascular: Cardiovascular: Denies chest pain, Denies syncope, Denies palpitations and Denies dyspnea Respiratory: Respiratory: Denies dyspnea Gastrointestinal: Gastrointestinal: Denies nausea and Denies vomiting Neurologic: Denies dizziness, Denies syncope and Denies headache(s) Endocrine: Endocrine: Denies fatigue and Denies palpitations [facility] Past Medical History Attestation statement: The following information was validated with the patient. Social History Social History Alcohol intake: never Patient Tobacco Use Status: Never used Tobacco Smoked in Last 30 Days: No Use of substances other than those prescribed or required for medical reasons: No Advance Directives: No Advance Directives Information Provided: No Physical Exam ED Vital Signs: Vital Signs - 24 hr 02/19/25 18:52 02/19/25 21:18 Temperature 98.8 F 98.8 F Pulse Rate 93 93 Respiratory Rate 18 18 Blood Pressure 131/78 131/78 Pulse Oximetry 98 98 Oxygen Delivery Method Room Air Room Air BMI result Body Mass Index 30.5 Const Other: Alert well-appearing Orientation/consciousness: patient oriented x3 Resp Effort & Inspection: normal respiratory effort Cardio Other: Normal peripheral perfusion Skin Other: Warm dry no rash Neuro Other: Shuffling gait is at baseline per patient's spouse General: patient oriented x3, no focal motor deficits and CN's II-XI intact bilaterally Psych Other: Cooperative Course Course Course Narrative: RME: 89 yold male presents to the ED For evaluation for falling unto back and head this past tuesday. Patient state having dizziness due to parkinsoisms. Imaging ordered Medical Decision Making Medical Decision Making [facility] Narrative: 89-year-old male with a history of Parkinson's disease with the associated gait instability who uses a cane to ambulate at home, presents after mechanical fall. Patient lost his balance and fell backwards, he hit his head on the wall, then hit his buttocks on the tub. There was no loss consciousness, the patient is not on a blood thinner. The incident occurred 2 days ago. Patient is here secondary to ongoing back and hip pain. The patient has been ambulatory since the fall. Problem: Parkinson's, age, gait instability History: Per patient and his I have considered the following differential diagnoses: Fracture, dislocation, contusion, intracranial hemorrhage, cervical spine injury, compression fracture Plan: CT scans of the brain and cervical spine ordered from triage in addition hip and lumbar spine x-rays. All studies are negative. I did offer the patient PT case management, they declined. We will send with home care instructions in regard to the use of Aleve and Tylenol. I have independently reviewed the following tests: CT brain:Findings: No intra-axial mass, midline shift, hydrocephalus, or acute hemorrhage. Age appropriate cerebral volume loss. Patchy low-density within the periventricular and subcortical white matter. There is no sinus or mastoid fluid. The orbits are within normal limits. No skull fracture. IMPRESSION: 1. No acute intracranial findings. CT cervical spine: Findings: Normal vertebral body alignment. Multilevel disc space narrowing and endplate osteophyte formation, as well as facet hypertrophy. No acute fractures or dislocations. No acute findings on limited view of the intracranial contents. Soft tissues of the neck are normal. No consolidation or effusion at the lung apices. IMPRESSION: No acute findings. X-ray lumbar spine:Findings: Normal alignment. No acute fractures or dislocation. Multilevel disc space narrowing and endplate osteophyte formation, as well as facet hypertrophy. IMPRESSION: No acute findings. X-ray hip pelvis: indings: No acute fracture or dislocation. Periarticular osteophyte formation at the bilateral hip joints. The soft tissues are unremarkable. IMPRESSION: No acute findings. Differential Diagnosis Differential Diagnoses: The differential diagnosis associated with the p resentation includes See medical decision-making Admission/Observation Consideration of admission/observation: Escalation of care including admission/observation considered Not applicable Radiology Impression Discussion of test interpretation with radiology: I have reviewed the radiologist's reading. Discharge Plan Discharge Clinical Impression: Musculoskeletal strain Patient Disposition: Home, Self-Care Instructions: Bone Bruise (ED) Additional Instructions: You sustained musculoskeletal strain/bone bruises. See home care instructions. Use [id number] Tylenol 1000 mg taken every 6 hours. Alternated with [id number] Aleve, use per package instructions. The CT scan of your brain and cervical spine were negative for acute injury. The x-rays of your hip and pelvis and lumbar spine were negative for acute process. Follow up with your primary care provider as needed. Prescriptions: No Action albuterol sulfate 90 mcg/actuation HFA aerosol inhaler 2 puff inhalation Q4-6H PRN (Reason: shortness of breath or wheezing) Qty: 8.5 0RF Interventions: ED Discharge Assessment Last Done: 02/19/25 21:18 Discharge Date/Time: 02/19/25 21:29 Print Language: [place] Citizen
--- OUTSIDE RECORDS SUMMARY | 2025-02-19 20:29 | XMS_ITS | Data Portability ---
Author Organization [facility] [employer], [employer] Address [address] [place] [address] Care Team Providers [employer] Name Role Phone DANIAL WAGNER Referring Provider DANIAL WAGNER Primary Care Provider [phone] Assessment Encounter Date Assessment Date Assessment LastModified by Organization Details LastModified Time 03/15/2024 03/15/2024 >>>>>>>>>>>>IMPR ES JAMIN: Parkinsonism most likely causing: ~2019 onset, up to 5 years of feeling leg weakness and noting to family loss of general energy; ~2022 onset 1-2 years of gait imbalance, with dizziness, predominantly when standing, with falls; ~2022 onset, 1 to 2 years of predominantly left side hand tremor >>>>>>>>>>>>Novemb er 2023 Exam is not prototypical for the most common cause of parkinsonism, Parkinson disease. I wonder about cortical basal degeneration which can also be asymmetric and which has prominent vertical eye movement abnormality, early in presentation, as one of its features. It may have asymmetric tremor. He has no symptoms to suggest alien limb syndrome which would make this more likely. Supranuclear palsy is even more prone to involving such prominent vertical eye movement abnormality as he has. This is usually not asymmetric. Tremor may occur but is not prototypical. 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 Vascular parkinsonism is also in differential. He does not have known risk factors. We discussed that I agree with primary care that parkinsonism is present. I cannot categorize the parkinsonism more specifically (as detailed above). DaTscan and/or brain MRI would help. He is cautious about any studies that might cost money. He has insurance. Yet I cannot say that there would not be co-pays. The benefit of the scans would be diagnostic and, to some degree, prognostic. None of the parkinsonian entities I am considering have cures or medications to slow progression. In this sense, there would be no benefit from such studies. Should he get a brain MRI and should small strokes be felt to suggest vascular parkinsonism, then we would have indication to provide secondary stroke prophylaxis medication, management benefit. He declines imaging. Carbidopa levodopa helps Parkinson's disease most robustly, and other forms of parkinsonism less so. Imaging is not needed to guide management. Trial of carbidopa levodopa would provide the same information of whether the medication helps. We discussed that if it did help, it would be more likely to help his tremor less likely, but still possibly, to help his gait. I discussed possible side effects. He would like me to put in a prescription for a trial. He has some forgetfulness. I discussed that I can only put the prescription in if his partner commits to managing medication administration and checking for potentially harmful side effects such as worsening of his baseline dizziness or diarrhea. She commits to doing this. Physical therapy for advice on walker versus cane is important. This might prevent fall and injury. He does not believe he could use a walker in the small apartment where he will be living with his partner. Physical therapy could provide an expert opinion on this. He would like to hold off on physical therapy referral but might consider in the future. I cannot exclude a contribution of hyperthyroidism to tremor. I defer thyroid function assay to primary care if this has not already been done. Medications per patient: Naproxen sodium, super beta prostate advanced >>>>>>>>>>>> ELIU Taylor March 15, 2024 Start Sinemet (generic levodopa/carbidopa ) to help tremor, and may slow walking with balance problem. Use these instructions: Sinemet 25/100 one half tablet at waking for one week, Sinemet 25/100 one half tablet at waking, one half tablet at noon, one half tablet 5 PM one week Sinemet 25/100 one tablet at waking, one tablet at noon, one tablet 5 PM afterwards Sinemet may cause side effects of nausea or diarrhea. If it does, take it with a little food, but not with protein. There may also be side effects of mild dizziness, and, rarely, hallucination. If you have side effects and they are mild, wait 2-3 days and see if they go away. If side effects do not go away, or they are not mild, then reduce the medication to the previous dose where you did not have side effects. If you're symptoms gets completely better on a particular dose of Sinemet, there is no need to increase to the next higher dose. If there is no help but no side effect, you may contact our office, inform me of this and I can cautiously increase the dose by 1/2 tablet at each dosage time. In any case, do not stop the medication as we may consider an increase at follow-up and your body is getting used to the medication. Follow-up in 3 months. [email or web address] Not available 03/15/2024 18:06:16 06/26/2024 06/26/2024 >>>>>>>>>>>>IMPR ES JAMIN: Parkinsonism most likely causing: ~2019 onset, up to 5 years of feeling leg weakness and noting to family loss of general energy; ~2022 onset 1-2 years of gait imbalance, with dizziness, predominantly when standing, with falls; ~2022 onset, 1 to 2 years of predominantly left side hand tremor -- June 26, 2024 carbidopa-levodopa 25/103 times daily: No side effect, no benefit. >>>>>>>>>>>>June 26, 2024 I suggest continuing titration up to 3 tablets three times a day and he agrees. They will watch for benefits and left hand tremor, walking and/or feeling of weakness. They will watch out for side effects including nausea, diarrhea, worsening of baseline dizziness or hallucination. His wonders on definition of parkinsonism. I told her it is a symptom based category based encompassing five different specific types of brain disease, all with parkinsonism, each having a different trajectory and different prominence of each of the characteristics of parkinsonism. The characteristics of parkinsonism, and broad brush, include parkinsonian gait, or concerning tremor, rigidity, parkinsonian discoordination of limb and/or hands/feet. The most common type of parkinsonism is Parkinson's disease, ~70%. The second most common types, tied, each ~15%, are Lewy body disease and vascular parkinsonism. The others are rare. There can be overlap. DaTscan imaging may differentiate vascular parkinsonism from the others. Her has declined. Brain MRI may see obvious features of vascular parkinsonism. Her has declined. Physical therapy for gait and balance may help all of them with reducing chance of fall. Her has declined. Carbidopa levodopa response may differentiate Parkinson's disease from other types of parkinsonism. It is this diagnostic pathway we are following with empirical trial of carbidopa levodopa. If he does not respond, other types then Parkinson's disease become more likely, in particular corticobasal degeneration, a rare type, but one that often is asymmetric as he is his presentation. We shall see. He has some depression according to his , not much. We discussed that Parkinson's diseases associated with it. Has it is not much, we will prioritize it lower than pursuing carbidopa levodopa titration. He has trouble sleeping. 5 mg melatonin helps partially but he still wakes up. He is not tired during the day and he is not napping. So this is not a serious issue at this point. We will monitor this. They can increase the melatonin if they want when they are not changing carbidopa-levodopa . He mentions that primary care wonders what direction we would go if there is no response to carbidopa levodopa. This is a hypothetical and complex so I will not address this question at this point. I mention to them that primary care is always welcome to call me and I can discuss directly questions that they have. >>>>>>>>>>>>Novem er 2023 Exam is not prototypical for the most common cause of parkinsonism, Parkinson disease. I wonder about cortical basal degeneration which can also be asymmetric and which has prominent vertical eye movement abnormality, early in presentation, as one of its features. It may have asymmetric tremor. He has no symptoms to suggest alien limb syndrome which would make this more likely. Supranuclear palsy is even more prone to involving such prominent vertical eye movement abnormality as he has. This is usually not asymmetric. Tremor may occur but is not prototypical. 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 Vascular parkinsonism is also in differential. He does not have known risk factors. We discussed that I agree with primary care that parkinsonism is present. I cannot categorize the parkinsonism more specifically (as detailed above). DaTscan and/or brain MRI would help. He is cautious about any studies that might cost money. He has insurance. Yet I cannot say that there would not be co-pays. The benefit of the scans would be diagnostic and, to some degree, prognostic. None of the parkinsonian entities I am considering have cures or medications to slow progression. In this sense, there would be no benefit from such studies. Should he get a brain MRI and should small strokes be felt to suggest vascular parkinsonism, then we would have indication to provide secondary stroke prophylaxis medication, management benefit. He declines imaging. Carbidopa levodopa helps Parkinson's disease most robustly, and other forms of parkinsonism less so. Imaging is not needed to guide management. Trial of carbidopa levodopa would provide the same information of whether the medication helps. We discussed that if it did help, it would be more likely to help his tremor less likely, but still possibly, to help his gait. I discussed possible side effects. He would like me to put in a prescription for a trial. He has some forgetfulness. I discussed that I can only put the prescription in if his partner commits to managing medication administration and checking for potentially harmful side effects such as worsening of his baseline dizziness or diarrhea. She commits to doing this. Physical therapy for advice on walker versus cane is important. This might prevent fall and injury. He does not believe he could use a walker in the small apartment where he will be living with his partner. Physical therapy could provide an expert opinion on this. He would like to hold off on physical therapy referral but might consider in the future. I cannot exclude a contribution of hyperthyroidism to tremor. I defer thyroid function assay to primary care if this has not already been done. Medications per patient: Naproxen sodium, super beta prostate advanced >>>>>>>>>>>> PLAN Luther Taylor June 26, 2024 carbidopa-levodopa /25-100 to help tremor, and may slow walking with balance problem, and with weakness that might relate to rigidity. Use these instructions: 1.5 tab waking, 1.5 tab noon, 1.5 tab 5 PM 1wk 2 tab waking, 2 tab noon, 2 tab 5 PM 1wk 2.5 tab waking, 2.5 tab noon, 2.5 tab 5 PM 1wk 3 tab waking, 3 tab noon, 3 tab 5 PM after carbidopa-levodopa may cause side effects of nausea or diarrhea. If it does, take it with a little food, but not with protein. There may also be side effects of mild dizziness, and, rarely, hallucination. If you have side effects and they are mild, wait 2-3 days and see if they go away. If side effects do not go away, or they are not mild, then reduce the medication to the previous dose where you did not have side effects. If you're symptoms gets completely better on a particular dose of carbidopa-levodopa , there is no need to increase to the next higher dose. Follow-up in 3 months. nicol Not available 06/26/2024 17:29:21 09/27/2024 09/27/2024 >>>>>>>>>>>>IMPR ES JAMIN: Parkinsonism most likely causing: ~2019 onset, up to 5 years of feeling leg weakness and noting to family loss of general energy; ~2022 onset 1-2 years of gait imbalance, with dizziness, predominantly when standing, with falls; ~2022 onset, 1 to 2 years of predominantly left side hand tremor -- June 26, 2024 carbidopa-levodopa 25/103 times daily: No side effect, no benefit. --September 27, 2024 carbidopa levodopa 25 1 03 tabs 3 times daily: No benefit; more unsteadiness; falls although no injury. >>>>>>>>>>>>September 27, 2024 He does not have parkinsonism significantly responsive to carbidopa levodopa. In all likelihood he does not have Parkinson's disease therefore. I do not have any medication to help his walking, his central concern or to help his general slowness/weakness. I do not have an ideal medication to help his tremor or his general slowness. There are suboptimal medications that could possibly help his tremor but they come with likelihood of side effects. The high priority is to get off carbidopa levodopa as it is associated with increased steadiness. I have instructed to decrease at each dosage time by 1/2 tablet every 3 days until he is off the medication. Unless steadiness gets markedly worse with a decrease, there is no reason to reverse this taper and discontinuation. His daughter says that he has never received instruction on how to get up should he fall. He understands that if he is unable to get up that he can call 911. He should especially call nine one if there is any hip pain. I offered physical therapy for evaluation of whether he is able to get up by himself. He declines. >>>>>>>>>>>>June 26, 2024 I suggest continuing titration up to 3 tablets three times a day and he agrees. They will watch for benefits and left hand tremor, walking and/or feeling of weakness. They will watch out for side effects including nausea, diarrhea, worsening of baseline dizziness or hallucination. His wonders on definition of parkinsonism. I told her it is a symptom based category based encompassing five different specific types of brain disease, all with parkinsonism, each having a different trajectory and different prominence of each of the characteristics of parkinsonism. The characteristics of parkinsonism, and broad brush, include parkinsonian gait, or concerning tremor, rigidity, parkinsonian discoordination of limb and/or hands/feet. The most common type of parkinsonism is Parkinson's disease, ~70%. The second most common types, tied, each ~15%, are Lewy body disease and vascular parkinsonism. The others are rare. There can be overlap. DaTscan imaging may differentiate vascular parkinsonism from the others. Her has declined. Brain MRI may see obvious features of vascular parkinsonism. Her has declined. Physical therapy for gait and balance may help all of them with reducing chance of fall. Her has declined. Carbidopa levodopa response may differentiate Parkinson's disease from other types of parkinsonism. It is this diagnostic pathway we are following with empirical trial of carbidopa levodopa. If he does not respond, other types then Parkinson's disease become more likely, in particular corticobasal degeneration, a rare type, but one that often is asymmetric as he is his presentation. We shall see. He has some depression according to his , not much. We discussed that Parkinson's diseases associated with it. Has it is not much, we will prioritize it lower than pursuing carbidopa levodopa titration. He has trouble sleeping. 5 mg melatonin helps partially but he still wakes up. He is not tired during the day and he is not napping. So this is not a serious issue at this point. We will monitor this. They can increase the melatonin if they want when they are not changing carbidopa-levodopa . He mentions that primary care wonders what direction we would go if there is no response to carbidopa levodopa. This is a hypothetical and complex so I will not address this question at this point. I mention to them that primary care is always welcome to call me and I can discuss directly questions that they have. >>>>>>>>>>>>Novemb er 2023 Exam is not prototypical for the most common cause of parkinsonism, Parkinson disease. I wonder about cortical basal degeneration which can also be asymmetric and which has prominent vertical eye movement abnormality, early in presentation, as one of its features. It may have asymmetric tremor. He has no symptoms to suggest alien limb syndrome which would make this more likely. Supranuclear palsy is even more prone to involving such prominent vertical eye movement abnormality as he has. This is usually not asymmetric. Tremor may occur but is not prototypical. 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 Vascular parkinsonism is also in differential. He does not have known risk factors. We discussed that I agree with primary care that parkinsonism is present. I cannot categorize the parkinsonism more specifically (as detailed above). DaTscan and/or brain MRI would help. He is cautious about any studies that might cost money. He has insurance. Yet I cannot say that there would not be co-pays. The benefit of the scans would be diagnostic and, to some degree, prognostic. None of the parkinsonian entities I am considering have cures or medications to slow progression. In this sense, there would be no benefit from such studies. Should he get a brain MRI and should small strokes be felt to suggest vascular parkinsonism, then we would have indication to provide secondary stroke prophylaxis medication, management benefit. He declines imaging. Carbidopa levodopa helps Parkinson's disease most robustly, and other forms of parkinsonism less so. Imaging is not needed to guide management. Trial of carbidopa levodopa would provide the same information of whether the medication helps. We discussed that if it did help, it would be more likely to help his tremor less likely, but still possibly, to help his gait. I discussed possible side effects. He would like me to put in a prescription for a trial. He has some forgetfulness. I discussed that I can only put the prescription in if his partner commits to managing medication administration and checking for potentially harmful side effects such as worsening of his baseline dizziness or diarrhea. She commits to doing this. Physical therapy for advice on walker versus cane is important. This might prevent fall and injury. He does not believe he could use a walker in the small apartment where he will be living with his partner. Physical therapy could provide an expert opinion on this. He would like to hold off on physical therapy referral but might consider in the future. I cannot exclude a contribution of hyperthyroidism to tremor. I defer thyroid function assay to primary care if this has not already been done. Medications per patient: Naproxen sodium, super beta prostate advanced >>>>>>>>>>>> PLAN Luther Claudia September 27, 2024 carbidopa-levodopa /25-100, currently: 3 tab waking, 3 tab noon, 3 tab 5 PM after decrease at each dosage time by 1/2 tablet every 3 days until he is off the medication. Unless steadiness gets markedly worse with a decrease, there is no reason to reverse this taper and discontinuation. Follow-up in 5 months. nicol Not available 09/27/2024 11:37:09 11/15/2024 11/15/2024 >>>>>>>>>>>>IMPR ES JAMIN: Parkinsonism most likely causing: ~2019 onset, up to 5 years of feeling leg weakness and noting to family loss of general energy; ~2022 onset 1-2 years of gait imbalance, with dizziness, predominantly when standing, with falls; ~2022 onset, 1 to 2 years of predominantly left side hand tremor -- June 26, 2024 carbidopa-levodopa 25/103 times daily: No side effect, no benefit. --September 27, 2024 carbidopa levodopa 25 1 03 tabs 3 times daily: No benefit; more unsteadiness; falls although no injury. --November 15, 2024 on carbidopa levodopa 25/100, 3 tablets three times a day, again feeling there is no benefit, with no dizziness d izziness was reported through phone call to the office transiently during the interim. >>>>>>>>>>>>November 15, 2024 We will again try to discontinue carbidopa-levodopa . We will discontinue more slowly, half tablet at each dosage times per week as opposed to every 3 days. They wonder about additional imaging. We will address that at follow-up. They wonder about difference between Parkinson's disease and parkinsonism w hich may be a part of diseases other than Parkinson's disease. They remember discussion of this June 2024. This still confuses them and concerns them. I will again address that at follow-up as needed. They wonder about other directions for treatment. We will again address that at follow-up depending on results of the taper. >>>>>>>>>>>>September 27, 2024 He does not have parkinsonism significantly responsive to carbidopa levodopa. In all likelihood he does not have Parkinson's disease therefore. I do not have any medication to help his walking, his central concern or to help his general slowness/weakness. I do not have an ideal medication to help his tremor or his general slowness. There are suboptimal medications that could possibly help his tremor but they come with likelihood of side effects. The high priority is to get off carbidopa levodopa as it is associated with increased steadiness. I have instructed to decrease at each dosage time by 1/2 tablet every 3 days until he is off the medication. Unless steadiness gets markedly worse with a decrease, there is no reason to reverse this taper and discontinuation. His daughter says that he has never received instruction on how to get up should he fall. He understands that if he is unable to get up that he can call 911. He should especially call nine one if there is any hip pain. I offered physical therapy for evaluation of whether he is able to get up by himself. He declines. >>>>>>>>>>>>June 26, 2024 I suggest continuing titration up to 3 tablets three times a day and he agrees. They will watch for benefits and left hand tremor, walking and/or feeling of weakness. They will watch out for side effects including nausea, diarrhea, worsening of baseline dizziness or hallucination. His wonders on definition of parkinsonism. I told her it is a symptom based category based encompassing five different specific types of brain disease, all with parkinsonism, each having a different trajectory and different prominence of each of the characteristics of parkinsonism. The characteristics of parkinsonism, and broad brush, include parkinsonian gait, or concerning tremor, rigidity, parkinsonian discoordination of limb and/or hands/feet. The most common type of parkinsonism is Parkinson's disease, ~70%. The second most common types, tied, each ~15%, are Lewy body disease and vascular parkinsonism. The others are rare. There can be overlap. DaTscan imaging may differentiate vascular parkinsonism from the others. Her has declined. Brain MRI may see obvious features of vascular parkinsonism. Her has declined. Physical therapy for gait and balance may help all of them with reducing chance of fall. Her has declined. Carbidopa levodopa response may differentiate Parkinson's disease from other types of parkinsonism. It is this diagnostic pathway we are following with empirical trial of carbidopa levodopa. If he does not respond, other types then Parkinson's disease become more likely, in particular corticobasal degeneration, a rare type, but one that often is asymmetric as he is his presentation. We shall see. He has some depression according to his , not much. We discussed that Parkinson's diseases associated with it. Has it is not much, we will prioritize it lower than pursuing carbidopa levodopa titration. He has trouble sleeping. 5 mg melatonin helps partially but he still wakes up. He is not tired during the day and he is not napping. So this is not a serious issue at this point. We will monitor this. They can increase the melatonin if they want when they are not changing carbidopa-levodopa . He mentions that primary care wonders what direction we would go if there is no response to carbidopa levodopa. This is a hypothetical and complex so I will not address this question at this point. I mention to them that primary care is always welcome to call me and I can discuss directly questions that they have. >>>>>>>>>>>>[facility] 2023 Exam is not prototypical for the most common cause of parkinsonism, Parkinson disease. I wonder about cortical basal degeneration which can also be asymmetric and which has prominent vertical eye movement abnormality, early in presentation, as one of its features. It may have asymmetric tremor. He has no symptoms to suggest alien limb syndrome which would make this more likely. Supranuclear palsy is even more prone to involving such prominent vertical eye movement abnormality as he has. This is usually not asymmetric. Tremor may occur but is not prototypical. 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 Vascular parkinsonism is also in differential. He does not have known risk factors. We discussed that I agree with primary care that parkinsonism is present. I cannot categorize the parkinsonism more specifically (as detailed above). DaTscan and/or brain MRI would help. He is cautious about any studies that might cost money. He has insurance. Yet I cannot say that there would not be co-pays. The benefit of the scans would be diagnostic and, to some degree, prognostic. None of the parkinsonian entities I am considering have cures or medications to slow progression. In this sense, there would be no benefit from such studies. Should he get a brain MRI and should small strokes be felt to suggest vascular parkinsonism, then we would have indication to provide secondary stroke prophylaxis medication, management benefit. He declines imaging. Carbidopa levodopa helps Parkinson's disease most robustly, and other forms of parkinsonism less so. Imaging is not needed to guide management. Trial of carbidopa levodopa would provide the same information of whether the medication helps. We discussed that if it did help, it would be more likely to help his tremor less likely, but still possibly, to help his gait. I discussed possible side effects. He would like me to put in a prescription for a trial. He has some forgetfulness. I discussed that I can only put the prescription in if his partner commits to managing medication administration and checking for potentially harmful side effects such as worsening of his baseline dizziness or diarrhea. She commits to doing this. Physical therapy for advice on walker versus cane is important. This might prevent fall and injury. He does not believe he could use a walker in the small apartment where he will be living with his partner. Physical therapy could provide an expert opinion on this. He would like to hold off on physical therapy referral but might consider in the future. I cannot exclude a contribution of hyperthyroidism to tremor. I defer thyroid function assay to primary care if this has not already been done. Medications per patient: Naproxen sodium, super beta prostate advanced >>>>>>>>>>>> PLAN Luther Taylor November 15, 2024 carbidopa-levodopa /25-100, currently: 3 tab waking, 3 tab noon, 3 tab 5 PM after decrease at each dosage time by 1/2 tablet every week until he is off the medication. Unless steadiness gets markedly worse with a decrease, there is no reason to reverse this taper and discontinuation. Follow-up in 2 months. [email or web address] Not available 11/15/2024 13:19:07 01/09/2025 01/09/2025 >>>>>>>>>>>>IMPR ES JAMIN: Parkinsonism most likely causing: ~2019 onset, up to 5 years of feeling leg weakness and noting to family loss of general energy; ~2022 onset 1-2 years of gait imbalance, with dizziness, predominantly when standing, with falls; ~2022 onset, 1 to 2 years of predominantly left side hand tremor -- June 26, 2024 carbidopa-levodopa 25/103 times daily: No side effect, no benefit. --September 27, 2024 carbidopa levodopa 25 1 03 tabs 3 times daily: No benefit; more unsteadiness; falls although no injury. --November 15, 2024 on carbidopa levodopa 25/100, 3 tablets three times a day, again feeling there is no benefit, with no dizziness d izziness was reported through phone call to the office transiently during the interim. --January 09, 2025 carbidopa-levodopa 25/100, 3 times daily, no help with essential symptom of gait disability, mild help with tremor but tremor does not bother him. 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 I have no other medication that might be stronger or better suited for this symptom. I do not have a pharmacological change in management to help his gait disability. Physical therapy is the best that I can suggest and he will be starting in-home physical therapy twice a day shortly under the management of [facility]. 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 The eye-movement abnormality can also be seen in supranuclear palsy. Both can present with prominent parkinsonian gait (supranuclear palsy more frequently). Neither have any specific medication that is beneficial for associated symptoms. Both of those are rare. Vascular parkinsonism is much more common. That is also a possible diagnosis. Her just daughter wonders about imaging. At this point, differentiation among the above discussed etiologies does not have likelihood of any management benefit. I do not strongly recommend any further investigation. Brain MRI might uncover chronic silent stroke. If these are small lacunar strokes, there is no clear evidence for secondary stroke prevention. If there is a territorial infarct that was silent t his can happen in the right frontal regions t hen there would be indication for secondary stroke prevention. It is fairly unusual to have a large territorial infarct that is silent. With this discussion, I offer brain MRI. I described brain MRI. He declines and his daughter and partner agree. DaTscan might increase likelihood of supranuclear palsy or corticobasal degeneration. As these do not have treatment, I do not believe DaTscan provides management benefit. We discussed that as I do not have suggestions for further investigation or management changes from neurological perspective, I suggest that they follow-up as needed. They agree with this. >>>>>>>>>>>>November 15, 2024 We will again try to discontinue carbidopa-levodopa . We will discontinue more slowly, half tablet at each dosage times per week as opposed to every 3 days. They wonder about additional imaging. We will address that at follow-up. They wonder about difference between Parkinson's disease and parkinsonism w hich may be a part of diseases other than Parkinson's disease. They remember discussion of this June 2024. This still confuses them and concerns them. I will again address that at follow-up as needed. They wonder about other directions for treatment. We will again address that at follow-up depending on results of the taper. >>>>>>>>>>>>September 27, 2024 He does not have parkinsonism significantly responsive to carbidopa levodopa. In all likelihood he does not have Parkinson's disease therefore. I do not have any medication to help his walking, his central concern or to help his general slowness/weakness. I do not have an ideal medication to help his tremor or his general slowness. There are suboptimal medications that could possibly help his tremor but they come with likelihood of side effects. The high priority is to get off carbidopa levodopa as it is associated with increased steadiness. I have instructed to decrease at each dosage time by 1/2 tablet every 3 days until he is off the medication. Unless steadiness gets markedly worse with a decrease, there is no reason to reverse this taper and discontinuation. His daughter says that he has never received instruction on how to get up should he fall. He understands that if he is unable to get up that he can call 911. He should especially call nine one if there is any hip pain. I offered physical therapy for evaluation of whether he is able to get up by himself. He declines. >>>>>>>>>>>>June 26, 2024 I suggest continuing titration up to 3 tablets three times a day and he agrees. They will watch for benefits and left hand tremor, walking and/or feeling of weakness. They will watch out for side effects including nausea, diarrhea, worsening of baseline dizziness or hallucination. His wonders on definition of parkinsonism. I told her it is a symptom based category based encompassing five different specific types of brain disease, all with parkinsonism, each having a different trajectory and different prominence of each of the characteristics of parkinsonism. The characteristics of parkinsonism, and broad brush, include parkinsonian gait, or concerning tremor, rigidity, parkinsonian discoordination of limb and/or hands/feet. The most common type of parkinsonism is Parkinson's disease, ~70%. The second most common types, tied, each ~15%, are Lewy body disease and vascular parkinsonism. The others are rare. There can be overlap. DaTscan imaging may differentiate vascular parkinsonism from the others. Her has declined. Brain MRI may see obvious features of vascular parkinsonism. Her has declined. Physical therapy for gait and balance may help all of them with reducing chance of fall. Her has declined. Carbidopa levodopa response may differentiate Parkinson's disease from other types of parkinsonism. It is this diagnostic pathway we are following with empirical trial of carbidopa levodopa. If he does not respond, other types then Parkinson's disease become more likely, in particular corticobasal degeneration, a rare type, but one that often is asymmetric as is his presentation. We shall see. He has some depression according to his , not much. We discussed that Parkinson's diseases associated with it. Has it is not much, we will prioritize it lower than pursuing carbidopa levodopa titration. He has trouble sleeping. 5 mg melatonin helps partially but he still wakes up. He is not tired during the day and he is not napping. So this is not a serious issue at this point. We will monitor this. They can increase the melatonin if they want when they are not changing carbidopa-levodopa . He mentions that primary care wonders what direction we would go if there is no response to carbidopa levodopa. This is a hypothetical and complex so I will not address this question at this point. I mention to them that primary care is always welcome to call me and I can discuss directly questions that they have. >>>>>>>>>>>>[facility] 2023 Exam is not prototypical for the most common cause of parkinsonism, Parkinson disease. I wonder about cortical basal degeneration which can also be asymmetric and which has prominent vertical eye movement abnormality, early in presentation, as one of its features. It may have asymmetric tremor. He has no symptoms to suggest alien limb syndrome which would make this more likely. Supranuclear palsy is even more prone to involving such prominent vertical eye movement abnormality as he has. This is usually not asymmetric. Tremor may occur but is not prototypical. 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 Vascular parkinsonism is also in differential. He does not have known risk factors. We discussed that I agree with primary care that parkinsonism is present. I cannot categorize the parkinsonism more specifically (as detailed above). DaTscan and/or brain MRI would help. He is cautious about any studies that might cost money. He has insurance. Yet I cannot say that there would not be co-pays. The benefit of the scans would be diagnostic and, to some degree, prognostic. None of the parkinsonian entities I am considering have cures or medications to slow progression. In this sense, there would be no benefit from such studies. Should he get a brain MRI and should small strokes be felt to suggest vascular parkinsonism, then we would have indication to provide secondary stroke prophylaxis medication, management benefit. He declines imaging. Carbidopa levodopa helps Parkinson's disease most robustly, and other forms of parkinsonism less so. Imaging is not needed to guide management. Trial of carbidopa levodopa would provide the same information of whether the medication helps. We discussed that if it did help, it would be more likely to help his tremor less likely, but still possibly, to help his gait. I discussed possible side effects. He would like me to put in a prescription for a trial. He has some forgetfulness. I discussed that I can only put the prescription in if his partner commits to managing medication administration and checking for potentially harmful side effects such as worsening of his baseline dizziness or diarrhea. She commits to doing this. Physical therapy for advice on walker versus cane is important. This might prevent fall and injury. He does not believe he could use a walker in the small apartment where he will be living with his partner. Physical therapy could provide an expert opinion on this. He would like to hold off on physical therapy referral but might consider in the future. I cannot exclude a contribution of hyperthyroidism to tremor. I defer thyroid function assay to primary care if this has not already been done. Medications per patient: Naproxen sodium, super beta prostate advanced >>>>>>>>>>>> PLAN Luther Garcíar January 09, 2025 at any point in this make that standing for the next week or two thanks okay I went and got a get into this other patient follow-up as needed, for reasons as detailed above. [email or web address] Not available 01/09/2025 15:24:01 Plan of Treatment Reminders Order Date Submit Date Provider Last Modified By Organization Details Last Modified Time Details Appointments None recorded. Lab None recorded. Referral None recorded. Procedures None recorded. Surgeries None recorded. Imaging None recorded. Medication Orders carbidopa 25 mg-levodop a 100 mg tablet 2024 025 [facility] [address] [place], [address], 17:15:35 carbidopa 25 mg-levodop a 100 mg tablet 2023 024 [facility] [address] [place], [address], 18:07:52 Patient TargetsNo targets recorded. Patient Instructions Encounter Date Encounter Id Patient Instructions Last Modified By Organization Details Last Modified Time 03/15/2024 [id number] Discussion acros s issues of diagnoses and management and same day associated chart review and management greater than 50% greater than 90 minutes [email or web address] Not available 03/15/2024 18:07:56 06/26/2024 [id number] Discussion acros s issues of diagnoses and management and same day associated chart review and management greater than 50% greater than 40 minutes [email or web address] Not available 06/26/2024 17:29:25 09/27/2024 [id number] Discussion acros s issues of diagnoses and management and same day associated chart review and management greater than 50% greater than 40 minutes [email or web address] Not available 09/27/2024 10:51:01 11/15/2024 [id number] Discussion acros s issues of diagnoses and management and same day associated chart review and management greater than 50% greater than 40 minutes [email or web address] Not available 11/15/2024 12:37:52 01/09/2025 [id number] Discussion acros s issues of diagnoses and management and same day associated chart review and management greater than 50% greater than 40 minutes [email or web address] Not available 01/09/2025 14:43:31 Reason for Referral None Reported. Results Created Date Observation Date Name Description Value Unit Range Abnormal Flag Note LastModifiedBy Organization Detail LastModifiedTime Result Notes None recorded. Procedures Surgical History Date Name Laterality Status Provider Name and Address Organization Details Recorded Time 01/09/2025 DATA REVIEW completed Joey Marques MD [address] [place], [place] [address], [phone], [facility] 01/09/2025 14:43:30 11/15/2024 DATA REVIEW completed Joey Marques MD [address] [place], [place] [address], [phone], [facility] 11/15/2024 12:37:52 09/27/2024 DATA REVIEW completed Joey Marques MD [address] [place], [place] [address], [phone], [facility] 09/27/2024 10:51:00 06/26/2024 DATA REVIEW completed Joey Marques MD [address] [place], [place] [address], [phone], [facility] 06/26/2024 16:36:50 03/15/2024 DATA REVIEW completed Joey Marques MD [address] [place], [place] [address], [phone], [facility] 03/15/2024 16:38:09 Imaging Results None recorded. Procedure Notes None recorded. Medical Equipment None Reported. Allergies No known drug allergies Medications Name Sig Start Date Stop Date Status Note LastModified by Organization Details LastModified Time mirtazapine 15 mg tablet TAKE 1 TABLET BY MOUTH ONCE DAILY AT BEDTIME active Not Available Not Available No t Available carbidopa 25 mg-levodopa 100 mg tablet TAKE 1.5 TAB AT WAKING, 1.5 TAB AT NOON,1.5 TAB AT 5 PM FOR 1 WEEK , 2 TABS AT WAKING , 2 TABS NOON, THEN 2 TABS AT 5 PM FOR 1 WEEK, 2.5 TAB AT WAKING ,2.5 TAB AT NOON THEN 2.5 TAB AT 5 PM FOR 1 WEEK, 3 TABS AM, 3 TABS AT NOON AND 3 TABS AT 5 PM AFTER active Not Available Not Available No t Available Aleve active Not Available Not Availa ble Not Available Vitals Date Recorded Respiratory rate Provider Name a nd Address Organization Details Last Updated DateTime 03/15/2024 12 /min Sydnie Mahoney [facility] 03/15/2024 14:47:57 Social History Question Answer Notes LastModified by Organizat ion Details LastModified Time Tobacco Smoking Status Never Smoker Sydnie Mahoney otilia [facility] 03/15/2024 14:49:57 What Is Your Level Of Caffeine Consumption? Moderate Information not available 03/15/2024 Which Of Your Hands Is Dominant? Left Information not available 03/15/2024 Sex: Unknown Functional Status Question Answer Note LastModified by Organization D etails LastModified Time What is your level of alcohol consumption? None Information not available 03/15/2024 Mental Status None recorded. Family History Nothing Reported. Medical History Condition Response Claustrophobia N Hospitalizations N Head Trauma/Injury N High Blood Pressure or Hypertension N Thyroid Problems N Brain Tumors N Depression N Lung Disease N COPD or emphysema N Encephalitis N Vitamin B12 deficiency N PTSD N Heart Attack ([place]) N Spine Problems N Obstructive Sleep Apnea N Alcoholism N Diabetes N Autoimmune disease N Bleeding Disorder N Arthritis N Tuberculosis N Cerebral Palsy N Developmental Problems N Neck Problems N Cancer N Back Problems N Stroke N Asthma N Heartburn, acid reflux, GERD N Vitamin D Deficiency N Epilepsy/Seizures N Bipolar Disorder N Sleep Disorder N Hepatitis N Aneurysm N Liver Disease N Heart Disease N Headaches N Fibromyalgia N High Cholesterol or Hyperlipidemia N Osteoporosis N Kidney Disease N Past Encounters Encounter ID Performer Location Encounter Start Date Encounter Closed Date Diagnosis/Indication Diagnosis SNOMED-CT Code Diagnosis ICD10 Code Diagnosis IMO Codes Diagnosis Note [id number] Joey Marques MD [facility] [address] [place] [address] [place] [address] 03/15/2024 14:42:27 03/20/2024 15:09:12 Parkinson's disease 49333809 G20.A1 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 [id number] Joey Marques MD [facility] [address] [place] [address] [place] [address] 06/26/2024 16:18:37 06/26/2024 17:32:37 Parkinson's disease 12042014 G20.A1 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 6423979 G21.4 [id number] Joey Marques MD [facility] [address] [place] [address] [place] [address] 09/27/2024 10:23:32 09/27/2024 12:06:53 Vascular parkinsonism [id number] G21.4 [id number] Joey Marques MD [facility] [address] [place] [address] [place] [address] 11/15/2024 12:14:02 11/17/2024 15:04:25 Vascular parkinsonism [id number] G21.4 [id number] Joey Marques MD [facility] [address] [place] [address] [place] [address] 01/09/2025 13:57:32 01/14/2025 17:00:02 Vascular parkinsonism [id number] G21.4 Health Concerns Section Related Observation LastModified by Organization Detai ls LastModified Time None Recorded Concern Status LastModified by Organization Details LastModified Time None Recorded Advance Directives Directive None Recorded Payers Insurance Date Sequence Insurance Name Policy Number Policy Eduardo Covered Member ID Eduardo Member ID Guarantor Name 01/14/2025 1 [place]MEDICARE REPLACEMENT HMO) [id number] Luther Taylor [id number] Luther Taylor Notes Date Note Type Note Provider Name and Address Organization Details Recorded Time 03/15/2024 text/html Luther Taylor presents for initial neurology consultation for assessment and management of: ~2019 onset, up to 5 years of feeling leg weakness and noting to family loss of general energy; ~2022 onset 1-2 years of gait imbalance, with dizziness, predominantly when standing, with falls; ~2022 onset, 1 to 2 years of predominantly left side hand tremor Past history is otherwise unremarkable; He has split his living time in his house in [place] and in house of significant other, more recently starting to move into significant other's house; He is accompanied by Bessy Biswas, significant other of 32 years; and daughter, Maryuri Reich, on telemedicine from [place].>>>>>>>>>>>> March 15, 2024 presenting symptomotology:He is unsure why he is here or why he might be referred to a neurologist. His significant other refers to November 2023 primary care visit with primary care noted left-sided hand tremor and gait imbalance with falls, and stated some concern for parkinsonism.Our patient has noticed a left-sided hand tremor for about 1 year; significant other agrees, 1-2 years.Our patient has noticed gait imbalance, for perhaps the same amount of time; significant other agrees, 1 to 2 years. She adds that his last fall was in December 2023.His daughter adds that he has also reported leg weakness for even longer and his significant other agrees and adds that he often says he is weak or tired all over. He agrees that he has had weakness, just in his legs. She supposes that leg weakness and more general tiredness/weakness has been going on for up to 5 years, perhaps a little shorter.His bladder control is pretty good. His significant adds that he has frequency but always gets to the bathroom in time.He has no constipation. He has no problem with sense of smell. He has no hallucination. His significant other agrees with all of this.She notices rare acting out his dreams when asleep, certainly less than once per month. She notices no abnormal leg movement when he sleeps. He has no more leg movement than normal before going to sleep and he falls asleep immediately upon going to bed.He has some forgetfulness but cannot say it is abnormal. As examples, he feels forgetful of the names of ball players or movies. His significant other feels that his memory is okay for his age but she notices his forgetfulness sometimes.He has not had physical therapy or visiting nurse evaluation that primary care recommended in November. This is despite telephone calls by significant other and by daughter to office of primary care more than once. They are frustrated by this.He has no feeling that his left (or right) arm feels somehow alien or not part of him. Joey Marques MD [address] [place] [address] [place], [phone], [facility] 03/15/2024 18:08:26 06/26/2024 text/html Neurology follow-upof: ~2019 onset, up to 5 years of feeling leg weakness and noting to family loss of general energy; ~2022 onset 1-2 years of gait imbalance, with dizziness, predominantly when standing, with falls; ~2022 onset, 1 to 2 years of predominantly left side hand tremor Past history is otherwise unremarkable; He has split his living time in his house in [place] and in house of significant other, more recently starting to move into significant other's house; He is accompanied by Bessy True, significant other of 32 years; and daughter, Maryuri Reich, on telemedicine from [place]. >>>>>>>>>>>>June 26, 2024Since March 15, 2024 Inititial neurology consultation, he has started and titrated carbidopa-levodopa 25/100 tablets according to schedule from initial consultation note and has arrived at 3 tablets at waking, 3 tablets noontime, 3 tablets 1 tablet waking, 1 tablet at noon, 1 tablet 5 PM. Neither he nor his feel he has had any side effects, nausea, diarrhea, worsening of his baseline dizziness or hallucination in particular.He has noticed no benefit in general, or particularly in his left hand tremor, in his walking, or with his feeling of weakness when moving or walking. His agrees in all respects. >>>>>>>>>>>>March 15, 2024 presenting symptomatology:He is unsure why he is here or why he might be referred to a neurologist. His significant other refers to November 2023 primary care visit with primary care noted left-sided hand tremor and gait imbalance with falls, and stated some concern for parkinsonism.Our patient has noticed a left-sided hand tremor for about 1 year; significant other agrees, 1-2 years.Our patient has noticed gait imbalance, for perhaps the same amount of time; significant other agrees, 1 to 2 years. She adds that his last fall was in December 2023.His daughter adds that he has also reported leg weakness for even longer and his significant other agrees and adds that he often says he is weak or tired all over. He agrees that he has had weakness, just in his legs. She supposes that leg weakness and more general tiredness/weakness has been going on for up to 5 years, perhaps a little shorter.His bladder control is pretty good. His significant adds that he has frequency but always gets to the bathroom in time.He has no constipation. He has no problem with sense of smell. He has no hallucination. His significant other agrees with all of this.She notices rare acting out his dreams when asleep, certainly less than once per month. She notices no abnormal leg movement when he sleeps. He has no more leg movement than normal before going to sleep and he falls asleep immediately upon going to bed.He has some forgetfulness but cannot say it is abnormal. As examples, he feels forgetful of the names of ball players or movies. His significant other feels that his memory is okay for his age but she notices his forgetfulness sometimes.He has not had physical therapy or visiting nurse evaluation that primary care recommended in November. This is despite telephone calls by significant other and by daughter to office of primary care more than once. They are frustrated by this.He has no feeling that his left (or right) arm feels somehow alien or not part of him. Joey Marques MD [address] [place] [address], [id number], [facility] 06/26/2024 17:29:49 09/27/2024 text/html Neurology follow-upof: ~2019 onset, up to 5 years of feeling leg weakness and noting to family loss of general energy; ~2022 onset 1-2 years of gait imbalance, with dizziness, predominantly when standing, with falls; ~2022 onset, 1 to 2 years of predominantly left side hand tremor Past history is otherwise unremarkable; He has split his living time in his house in [place] and in house of significant other, more recently starting to move into significant other's house; He is accompanied by Bessy Biswas, significant other of 32 years; and daughter, Maryuri Reich, on telemedicine from [place]. >>>>>>>>>>>>September 27, 2024Since June 26, 2024 Neurology follow-up encounter, he has slowly increased carbidopa-levodopa 25/100, from 1 tablet three times a day up to 3 tablets three times a day by half tablet increments at each dose, increases every week.After the first increase only, he had increased dizziness for two or 3 days. He then returned to his baseline intermittent dizziness. He has had no increase of his baseline dizziness since then.At some point he had a little nausea. He started taking his medication with milk and since then he has had no nausea.He has had no diarrhea, no hallucinations.He has had no change, improvement or other, and his baseline left hand tremor, or his slowness or weakness with moving upper extremities or turning in bed.He has felt a little more unsteady walking than he was 3 months ago. He has had several falls. He has had no serious injury.All falls have been while he uses his walker or his cane. One fall with a walker was going downhill. I suggested that he not ambulate downhill with walker or more generally.One fall was with cane getting into the passenger seat of the car in the garage where there is a small step upward. His significant other says that it is possible to pull the car out of the garage so he can get in without having to traverse the single step upward. I suggest that they use this method and that he always use a walker when he is approaching and getting into the car.We discussed the risk of fall with serious injury, especially hip fracture and its morbidity. >>>>>>>>>>>>June 26, 2024Since March 15, 2024 Inititial neurology consultation, he has started and titrated carbidopa-levodopa 25/100 tablets according to schedule from initial consultation note and has arrived at 3 tablets at waking, 3 tablets noontime, 3 tablets 1 tablet waking, 1 tablet at noon, 1 tablet 5 PM. Neither he nor his feel he has had any side effects, nausea, diarrhea, worsening of his baseline dizziness or hallucination in particular.He has noticed no benefit in general, or particularly in his left hand tremor, in his walking, or with his feeling of weakness when moving or walking. His agrees in all respects. >>>>>>>>>>>>March 15, 2024 presenting symptomatology:He is unsure why he is here or why he might be referred to a neurologist. His significant other refers to November 2023 primary care visit with primary care noted left-sided hand tremor and gait imbalance with falls, and stated some concern for parkinsonism.Our patient has noticed a left-sided hand tremor for about 1 year; significant other agrees, 1-2 years.Our patient has noticed gait imbalance, for perhaps the same amount of time; significant other agrees, 1 to 2 years. She adds that his last fall was in December 2023.His daughter adds that he has also reported leg weakness for even longer and his significant other agrees and adds that he often says he is weak or tired all over. He agrees that he has had weakness, just in his legs. She supposes that leg weakness and more general tiredness/weakness has been going on for up to 5 years, perhaps a little shorter.His bladder control is pretty good. His significant adds that he has frequency but always gets to the bathroom in time.He has no constipation. He has no problem with sense of smell. He has no hallucination. His significant other agrees with all of this.She notices rare acting out his dreams when asleep, certainly less than once per month. She notices no abnormal leg movement when he sleeps. He has no more leg movement than normal before going to sleep and he falls asleep immediately upon going to bed.He has some forgetfulness but cannot say it is abnormal. As examples, he feels forgetful of the names of ball players or movies. His significant other feels that his memory is okay for his age but she notices his forgetfulness sometimes.He has not had physical therapy or visiting nurse evaluation that primary care recommended in November. This is despite telephone calls by significant other and by daughter to office of primary care more than once. They are frustrated by this.He has no feeling that his left (or right) arm feels somehow alien or not part of him. Joey Marques MD [address] [place], [place] [address], [phone], [facility] 09/27/2024 11:37:43 11/15/2024 text/html Neurology follow-upof: ~2019 onset, up to 5 years of feeling leg weakness and noting to family loss of general energy; ~2022 onset 1-2 years of gait imbalance, with dizziness, predominantly when standing, with falls; ~2022 onset, 1 to 2 years of predominantly left side hand tremor Past history is otherwise unremarkable; He has split his living time in his house in [place] and in house of significant other, more recently starting to move into significant other's house; He is accompanied by Bessy Biswas, significant other of 32 years; and daughter, aMryuri Reich, on telemedicine from [place]. >>>>>>>>>>>>November 15, 2024Since September 27, 2024 Neurology follow-up encounter, there have been a number of communications between the patient at our office and an additional communication from the patient's primary care office as follows:>>>>>>>>>>>>> > patient's >>>>>>>>>>>>>>>> October 08, 2024 Pts a partner called. They are reducing the carbidopa levodopa as directed by [facility]. Pt reports not feeling as well as he did when he was on the full dosage. I've left a message to get more information on how he is feeling now, vs how he felt on full dosag [facility] 2024 pt's left , stated he is experiencing worse nausea, dizziness, and balance is worse than before. He, in general, doesn't feel as well as he was on the previous dose of medication. [facility] 2024 Pt wished to return to his original level of carbidopa levodopa, spouse wants to reverse the titration to get back to original dose.>>>>>>>>>>>>>> I responded>>>>>>>>>>>> >>>> [facility] 2024 please ask him exactly what dose he is on h e should tell you the number of tabs at waking, new and at 5 PM. The number should be something less than three tabs as he was decreasing slowly, by a half a tab every 3 days or so. Please write down his current dose and then instruct /patient to increase by exactly 1/2 tablet each dose and to call back in a few days (by or not until Tuesday), in the morning so you can handle this, with how he is with the dose increased by 1/2 tablet at each dose. Separately, he has noticed imbalance which we were trying to treat so I am comfortable increasing the carbidopa levodopa for that. However, he has never mentioned nausea except briefly as a side effect of the medication at the very beginning. He has never mentioned dizziness except briefly as a side effect which eventually got better. It makes no sense to me that nausea or dizziness worsen with decreasing the medicine. Therefore, please ask him/his to check in with primary care to make sure there is no urinary tract infection or illness more generally which can cause nausea and dizziness>>>>>>>>>>>> >> patient's partner >>>>>>>>>>>>>>>> [facility] 2024 pt is taking 1 1/2 tab am-will increase to 2, 1 1/2 tab noon-will increase to 2, evening 2-will increase to 2 1/2. Pt spouse will get him to primary care to test for uti or other illness. Spouse will report back or Tuesday am [facility] 2024 patient has been tested for UTI, no results back, they have an appointment with PCP on Tuesday to discuss dizziness and other issue including ear problems. Pt is still having balance issues, but tremor is better. He is back to his original dosage [facility] 2024Pt's spouse called. Pt had apt with PCP. His urinalysis was negative. PCP performed EKG, Echocardiogram, put in a order for PT, and ordered bloodwork. He also prescribed mirtazatine 15 mg.>>>>>>>>>>>>>> patient's PCP >>>>>>>>>>>>>>>> [facility] 2024 pt dtr called. stated pt went to pcp and they did some labs including a lyme titer that potentially had results ( she didn't know exactly) so I'll request those. But the pt is thinking that after seeing his pcp, he would be interested in lowering/ discontinuing taking this medication. they're wondering if you think that's a good idea or not. I made a preemptive appt for him with the dtr in case we need it but I'll call once I hear back from you and confirm everything>>>>>>>>>>> >>> I responded>>>>>>>>>>>> >>>> [facility] 2024 ask him and daughter what symptoms currently bother him and whether they are mild moderate or severe. Then ask if PCP found any definite explananations.>>>>>> >>>>>>>> patient's partner or daughter >>>>>>>>>>>>>>>> [facility] 2024 pt's left vm over holiday. Stated pt feels that he reacted too quickly and would like to know if we think it's okay for him to discontinue the medication all together in a slow taper. Main symptom is balance stated this was moderate, and they haven't heard on explanations / lab results yet, there will be another pcp appt with pt, , and dtr soon to discuss all results>>>>>>>>>>>>>> I responded>>>>>>>>>>>> >>>>I recommend no changes if the main symptom is balance worsening in the absence of any lightheadedness or dizziness or syncope like feeling. If there is lightheadedness or dizziness or syncope like feeling with the imbalance then yes a slow taper going down. We can move toward a slow taper in any case if we hear that the PCP has finished their workup and finds no other explanation >>>>>>>>>>>>>> patient's >>>>>>>>>>>>>>>>pt's partner is aware and pt will continue on the med >>>>>>>>>>>>>> Encounter November 15, 2024>>>>>>>>>>>>>>>>> >>>>>>>>>>>>> Encounter November 15, 2024>>>>>>>>>>>>>>>>> >>>>>>>>>>>>> Encounter November 15, 2024>>>>>>>>>>>>>>>>T [place], patient and his partner report that he is on carbidopa-levodopa 25-103 tablets three times a day.He is not reporting dizziness. He thinks the medication does not help. The issues he needs help with, he reiterates: Left hand tremor and problems walking so that he walks into things. (He denies any general problems using his upper extremities other than the tremor; he denies any problems turning in bed that I had recorded earlier.)They have followed up with primary care just this morning. Except for elevated PSA, all testing by primary care has been unrevealing, they report. >>>>>>>>>>>>September 27, 2024Since June 26, 2024 Neurology follow-up encounter, he has slowly increased carbidopa-levodopa 25/100, from 1 tablet three times a day up to 3 tablets three times a day by half tablet increments at each dose, increases every week.After the first increase only, he had increased dizziness for two or 3 days. He then returned to his baseline intermittent dizziness. He has had no increase of his baseline dizziness since then.At some point he had a little nausea. He started taking his medication with milk and since then he has had no nausea.He has had no diarrhea, no hallucinations.He has had no change, improvement or other, and his baseline left hand tremor, or his slowness or weakness with moving upper extremities or turning in bed.He has felt a little more unsteady walking than he was 3 months ago. He has had several falls. He has had no serious injury.All falls have been while he uses his walker or his cane. One fall with a walker was going downhill. I suggested that he not ambulate downhill with walker or more generally.One fall was with cane getting into the passenger seat of the car in the garage where there is a small step upward. His significant other says that it is possible to pull the car out of the garage so he can get in without having to traverse the single step upward. I suggest that they use this method and that he always use a walker when he is approaching and getting into the car.We discussed the risk of fall with serious injury, especially hip fracture and its morbidity. >>>>>>>>>>>>June 26, 2024Since March 15, 2024 Inititial neurology consultation, he has started and titrated carbidopa-levodopa 25/100 tablets according to schedule from initial consultation note and has arrived at 1 tablet waking, 1 tablet at noon, 1 tablet 5 PM. Neither he nor his feel he has had any side effects, nausea, diarrhea, worsening of his baseline dizziness or hallucination in particular.He has noticed no benefit in general, or particularly in his left hand tremor, in his walking, or with his feeling of weakness when moving or walking. His agrees in all respects. >>>>>>>>>>>>March 15, 2024 presenting symptomatology:He is unsure why he is here or why he might be referred to a neurologist. His significant other refers to November 2023 primary care visit with primary care noted left-sided hand tremor and gait imbalance with falls, and stated some concern for parkinsonism.Our patient has noticed a left-sided hand tremor for about 1 year; significant other agrees, 1-2 years.Our patient has noticed gait imbalance, for perhaps the same amount of time; significant other agrees, 1 to 2 years. She adds that his last fall was in December 2023.His daughter adds that he has also reported leg weakness for even longer and his significant other agrees and adds that he often says he is weak or tired all over. He agrees that he has had weakness, just in his legs. She supposes that leg weakness and more general tiredness/weakness has been going on for up to 5 years, perhaps a little shorter.His bladder control is pretty good. His significant adds that he has frequency but always gets to the bathroom in time.He has no constipation. He has no problem with sense of smell. He has no hallucination. His significant other agrees with all of this.She notices rare acting out his dreams when asleep, certainly less than once per month. She notices no abnormal leg movement when he sleeps. He has no more leg movement than normal before going to sleep and he falls asleep immediately upon going to bed.He has some forgetfulness but cannot say it is abnormal. As examples, he feels forgetful of the names of ball players or movies. His significant other feels that his memory is okay for his age but she notices his forgetfulness sometimes.He has not had physical therapy or visiting nurse evaluation that primary care recommended in November. This is despite telephone calls by significant other and by daughter to office of primary care more than once. They are frustrated by this.He has no feeling that his left (or right) arm feels somehow alien or not part of him. Joey Marques MD [address] [place] [address] [place], [id number], [facility] 11/15/2024 13:19:23 01/09/2025 text/html Neurology follow-upof: ~2019 onset, up to 5 years of feeling leg weakness and noting to family loss of general energy; ~2022 onset 1-2 years of gait imbalance, with dizziness, predominantly when standing, with falls; ~2022 onset, 1 to 2 years of predominantly left side hand tremor Past history is otherwise unremarkable; He has split his living time in his house in [place] and in house of significant other, more recently starting to move into significant other's house; He is accompanied by Bessy Biswas, significant other of 32 years; and daughter, Maryuri Reich, on telemedicine from [place]. >>>>>>>>>>>>January 09, 2025Since November 15, 2024 Neurology follow-up encounter, he has again tapered his carbidopa-levodopa 3 times a day regimen, more slowly than before. He has been completely off carbidopa-levodopa for several weeks.He has not gotten any better. He feels that he is getting worse and worse. The central issue that is worsening is his ability to walk.His partner said that the only thing that she noticed that worsened with the taper of carbidopa-levodopa was that his tremor might be a little worse. He states that his tremor does not bother him.He continues on the mirtazapine that primary care started at bedtime every evening. He is not getting frustrated about his disability with walking h e just does not like it. He is sleeping well. He is not having any hallucinations.[facility] has brought in [facility] home care. There has been an evaluation by a visiting nurse just a few days ago. He is starting physical therapy twice a week and [facility] homecare will reevaluate in 1 month.His partner is frequently feeling overwhelmed in her role as a caregiver. She did not mention that to [facility] during their evaluation. I encouraged her to call them and mention this. I believe that they are able to arrange for home health aide assistance in this situation. >>>>>>>>>>>>November 15, 2024Since September 27, 2024 Neurology follow-up encounter, there have been a number of communications between the patient at our office and an additional communication from the patient's primary care office as follows:>>>>>>>>>>>>> > patient's >>>>>>>>>>>>>>>> October 08, 2024 Pts a partner called. They are reducing the carbidopa levodopa as directed by [facility]. Pt reports not feeling as well as he did when he was on the full dosage. I've left a message to get more information on how he is feeling now, vs how he felt on full dosag [facility] 2024 pt's left , stated he is experiencing worse nausea, dizziness, and balance is worse than before. He, in general, doesn't feel as well as he was on the previous dose of medication. [facility] 2024 Pt wished to return to his original level of carbidopa levodopa, spouse wants to reverse the titration to get back to original dose.>>>>>>>>>>>>>> I responded>>>>>>>>>>>> >>>> [facility] 2024 please ask him exactly what dose he is on h e should tell you the number of tabs at waking, new and at 5 PM. The number should be something less than three tabs as he was decreasing slowly, by a half a tab every 3 days or so. Please write down his current dose and then instruct /patient to increase by exactly 1/2 tablet each dose and to call back in a few days (by or not until Tuesday), in the morning so you can handle this, with how he is with the dose increased by 1/2 tablet at each dose. Separately, he has noticed imbalance which we were trying to treat so I am comfortable increasing the carbidopa levodopa for that. However, he has never mentioned nausea except briefly as a side effect of the medication at the very beginning. He has never mentioned dizziness except briefly as a side effect which eventually got better. It makes no sense to me that nausea or dizziness worsen with decreasing the medicine. Therefore, please ask him/his to check in with primary care to make sure there is no urinary tract infection or illness more generally which can cause nausea and dizziness>>>>>>>>>>>> >> patient's partner >>>>>>>>>>>>>>>> [facility] 2024 pt is taking 1 1/2 tab am-will increase to 2, 1 1/2 tab noon-will increase to 2, evening 2-will increase to 2 1/2. Pt spouse will get him to primary care to test for uti or other illness. Spouse will report back or Tuesday am [facility] 2024 patient has been tested for UTI, no results back, they have an appointment with PCP on Tuesday to discuss dizziness and other issue including ear problems. Pt is still having balance issues, but tremor is better. He is back to his original dosage J [facility] 2024Pt's spouse called. Pt had apt with PCP. His urinalysis was negative. PCP performed EKG, Echocardiogram, put in a order for PT, and ordered bloodwork. He also prescribed mirtazatine 15 mg.>>>>>>>>>>>>>> patient's [facility]CP >>>>>>>>>>>>>>>> [facility]. stated pt went to pcp and they did some labs including a lyme titer that potentially had results ( she didn't know exactly) so I'll request those. But the pt is thinking that after seeing his pcp, he would be interested in lowering/ discontinuing taking this medication. they're wondering if you think that's a good idea or not. I made a preemptive appt for him with the dtr in case we need it but I'll call once I hear back from you and confirm everything>>>>>>>>>>> >>> I responded>>>>>>>>>>>> >>>> [facility] ask him and daughter what symptoms currently bother him and whether they are mild moderate or severe. Then ask if PCP found any definite explananations.>>>>>> >>>>>>>> patient's partner or daughter >>>>>>>>>>>>>>>> J génesis 2024 pt's left over holiday. Stated pt feels that he reacted too quickly and would like to know if we think it's okay for him to discontinue the medication all together in a slow taper. Main symptom is balance stated this was moderate, and they haven't heard on explanations / lab results yet, there will be another pcp appt with pt, , and dtr soon to discuss all results>>>>>>>>>>>>>> I responded>>>>>>>>>>>> >>>>I recommend no changes if the main symptom is balance worsening in the absence of any lightheadedness or dizziness or syncope like feeling. If there is lightheadedness or dizziness or syncope like feeling with the imbalance then yes a slow taper going down. We can move toward a slow taper in any case if we hear that the PCP has finished their workup and finds no other explanation >>>>>>>>>>>>>> patient's >>>>>>>>>>>>>>>>pt's partner is aware and pt will continue on the med >>>>>>>>>>>>>> Encounter November 15, 2024>>>>>>>>>>>>>>>>> >>>>>>>>>>>>> Encounter November 15, 2024>>>>>>>>>>>>>>>>> >>>>>>>>>>>>> Encounter November 15, 2024>>>>>>>>>>>>>>>>T soc[place], patient and his partner report that he is on carbidopa-levodopa 25-103 tablets three times a day.He is not reporting dizziness. He thinks the medication does not help. The issues he needs help with, he reiterates: Left hand tremor and problems walking so that he walks into things. (He denies any general problems using his upper extremities other than the tremor; he denies any problems turning in bed that I had recorded earlier.)They have followed up with primary care just this morning. Except for elevated PSA, all testing by primary care has been unrevealing, they report. >>>>>>>>>>>>September 27, 2024Since June 26, 2024 Neurology follow-up encounter, he has slowly increased carbidopa-levodopa 25/100, from 1 tablet three times a day up to 3 tablets three times a day by half tablet increments at each dose, increases every week.After the first increase only, he had increased dizziness for two or 3 days. He then returned to his baseline intermittent dizziness. He has had no increase of his baseline dizziness since then.At some point he had a little nausea. He started taking his medication with milk and since then he has had no nausea.He has had no diarrhea, no hallucinations.He has had no change, improvement or other, and his baseline left hand tremor, or his slowness or weakness with moving upper extremities or turning in bed.He has felt a little more unsteady walking than he was 3 months ago. He has had several falls. He has had no serious injury.All falls have been while he uses his walker or his cane. One fall with a walker was going downhill. I suggested that he not ambulate downhill with walker or more generally.One fall was with cane getting into the passenger seat of the car in the garage where there is a small step upward. His significant other says that it is possible to pull the car out of the garage so he can get in without having to traverse the single step upward. I suggest that they use this method and that he always use a walker when he is approaching and getting into the car.We discussed the risk of fall with serious injury, especially hip fracture and its morbidity. >>>>>>>>>>>>June 26, 2024Since March 15, 2024 Inititial neurology consultation, he has started and titrated carbidopa-levodopa 25/100 tablets according to schedule from initial consultation note and has arrived at 1 tablet waking, 1 tablet at noon, 1 tablet 5 PM. Neither he nor his feel he has had any side effects, nausea, diarrhea, worsening of his baseline dizziness or hallucination in particular.He has noticed no benefit in general, or particularly in his left hand tremor, in his walking, or with his feeling of weakness when moving or walking. His agrees in all respects. >>>>>>>>>>>>March 15, 2024 presenting symptomatology:He is unsure why he is here or why he might be referred to a neurologist. His significant other refers to November 2023 primary care visit with primary care noted left-sided hand tremor and gait imbalance with falls, and stated some concern for parkinsonism.Our patient has noticed a left-sided hand tremor for about 1 year; significant other agrees, 1-2 years.Our patient has noticed gait imbalance, for perhaps the same amount of time; significant other agrees, 1 to 2 years. She adds that his last fall was in December 2023.His daughter adds that he has also reported leg weakness for even longer and his significant other agrees and adds that he often says he is weak or tired all over. He agrees that he has had weakness, just in his legs. She supposes that leg weakness and more general tiredness/weakness has been going on for up to 5 years, perhaps a little shorter.His bladder control is pretty good. His significant adds that he has frequency but always gets to the bathroom in time.He has no constipation. He has no problem with sense of smell. He has no hallucination. His significant other agrees with all of this.She notices rare acting out his dreams when asleep, certainly less than once per month. She notices no abnormal leg movement when he sleeps. He has no more leg movement than normal before going to sleep and he falls asleep immediately upon going to bed.He has some forgetfulness but cannot say it is abnormal. As examples, he feels forgetful of the names of ball players or movies. His significant other feels that his memory is okay for his age but she notices his forgetfulness sometimes.He has not had physical therapy or visiting nurse evaluation that primary care recommended in November. This is despite telephone calls by significant other and by daughter to office of primary care more than once. They are frustrated by this.He has no feeling that his left (or right) arm feels somehow alien or not part of him. Joey Marques MD [address] [place] [address] [place], [id number], [facility] 01/09/2025 15:24:15
[2025-02-19 21:18] VITALS: BP 131/78; PULSE 93; RESP 18; TEMP 37.1; O2SAT 98
== END 2025-02-19 21:29 | disposition home or self-care (01) ==
PROVIDERS: Emergency Provider Emergency Medicine; PCP Family Medicine
DX: S09.90XA Unspecified injury of head, initial encounter (principal); S39.92XA Unspecified injury of lower back, initial encounter; G20.A1 Parkinson's disease without dyskinesia, without mention of fluctuations; R26.89 Other abnormalities of gait and mobility; R51.9 Headache, unspecified; M54.2 Cervicalgia; M54.50 Low back pain, unspecified; M25.552 Pain in left hip; M25.551 Pain in right hip; M79.10 Myalgia, unspecified site; W01.10XA Fall on same level from slipping, tripping and stumbling with subsequent striking against unspecified object, initial encounter; Y93.01 Activity, walking, marching and hiking; Y92.002 Bathroom of unspecified non-institutional (private) residence as the place of occurrence of the external cause; Y99.8 Other external cause status; Z79.899 Other long term (current) drug therapy
CPT/HCPCS: 70450; 72100; 72125; 73521; 99284

== ENCOUNTER → 2025-02-19 18:54 | Outpatient (BNV) | payer MEDICARE, SELFPAY | PROVIDERS: PCP Family Medicine; Visit Provider Radiology Diagnostic Radiology | DX: M47.812 Spondylosis without myelopathy or radiculopathy, cervical region (principal); S09.90XA Unspecified injury of head, initial encounter; M16.0 Bilateral primary osteoarthritis of hip; M47.816 Spondylosis without myelopathy or radiculopathy, lumbar region | CPT/HCPCS: 70450; 72100; 72125; 73521 ==

== ENCOUNTER 2025-02-28 18:16 | Emergency (ER) | payer MEDICARE, SELFPAY ==
--- NOTE | ~2025-02-28 | US_ITS ---
CLINICAL HISTORY: lower leg swelling, concern for DVT Venous duplex ultrasound bilateral lower extremity Comparison: None provided Findings: The visualized deep veins are fully compressible with normal Doppler color flow and spectral tracings. No popliteal cyst. IMPRESSION: 1. Negative for bilateral lower extremity deep vein thrombosis. This document has been electronically signed by: Danika Wilkins MD on 02/28/2025 20:27:59
[2025-02-28 18:32] VITALS: BP 185/81; PULSE 68; RESP 18; TEMP 36.2; O2SAT 98
--- NOTE | 2025-02-28 18:36 | ED.GENADULT ---
HPI - General Adult General Chief complaint: Extremity Injury, Lower Stated complaint: swollen ankle/legs ?blood clot sent by Time Seen by Provider: 02/28/25 22:01 History of Present Illness ED Provider: Thomas Ignacio MD HPI narrative: 89-year-old male sent in for bilateral leg swelling. The patient was in a follow up appointment with the PCP was a physician covering the normal PCP. The patient tells me that he was mainly there for follow up appointment after brief hospital stay for mechanical fall on he had back pain. He has been having back pain sleeping upright in a couch since being home. He is accompanied by his female longstanding partner who corroborates most of the history. In the PCP office today the PCP noted bilateral leg swelling. It is unclear if this is new patient noticed it himself but was unclear when this started. Seems there was some cognitive impairment. No pain no injury no history of DVT. Was sent here for ?rule out blood clot ?. Related Data Previous Rx's ?Medication ?Instructions ?Recorded albuterol sulfate 90 mcg/actuation 2 puff inhalation Q4-6H PRN 12/26/23 aerosol inhaler shortness of breath or wheezing #8.5 grams Allergies Allergy/AdvReac Type Severity Reaction Status Date / Time No Known Allergies Allergy Verified 02/28/25 18:34 COUNT INCLUDES THE [facility] Social History Social History Alcohol intake: never Patient Tobacco Use Status: Never used Tobacco Smoked in Last 30 Days: No Use of substances other than those prescribed or required for medical reasons: No Advance Directives: No Advance Directives Information Provided: No Do you have a plan to hurt others: No Plan Physical Exam ED Exam Exam: EXAM: Gen: Alert, awake, well appearing, well hydrated. Pleasantly demented Head: Atraumatic Eyes: Anicteric, Normal conjunctiva. ENT: Moist mucosa, no pallor. ? Neck: Supple. Skin: ?No observable rash or bruising on exposed or examined skin Respiratory: Breathing comfortably, No distress.Clear to auscultation bilaterally, symmetric chest expansion, No wheeze, rales, ronchi. Cardiovascular: Regular rate and rhythm. No murmurs or rub. Well perfused periphery, warm extremities. Bilateral symmetric 2+ pitting edema dorsum of the foot to just below the knee. No erythema. There was some scabbing and excoriation bilateral feet but no drainage or appearance of infection or warmth. Well-perfused digits. No calf tenderness. Soft compartments throughout the legs. Abdominal: No focal tenderness. Soft, no objective distension. No palpable masses or obvious organomegaly. ?No guarding, no rebound tenderness or other peritoneal findings. : No flank tenderness. Neuro: Alert. Gross movement of all extremities intact. ? Psych: Calm. Cooperative. MSK: No grossly visible deformity. Vital signs: See flowsheet Vital Signs: Vital Signs - 24 hr 02/28/25 18:32 02/28/25 19:52 Temperature 97.1 F 97.5 F Pulse Rate 68 74 Respiratory Rate 18 12 Blood Pressure 185/81 H 155/79 H Pulse Oximetry 98 97 Oxygen Delivery Method Room Air Room Air BMI result Body Mass Index 30.0 Course Course Course Narrative: Rapid medical examination performed in triage by Susanne Bhardwaj PA-C: Patient is an 89 year old assigned male at presenting to the emergency department with bilateral lower leg swelling. Detailed physical exam and review of systems are deferred to the prover. EKG, labs, and imaging ordered. Patient placed back in the waiting room pending room availability and results. Medical Decision Making Medical Decision Making MDM Narrative: Medical Decision Makin-year-old male with bilateral symmetric leg swelling. No clinical suggestion of infection. DVT excluded. There was no clinical appearance of cardiogenic fluid overload such as the crackles or JVD and he has normal vital signs. Presumed lymphedema versus dependent edema. His BNP is elevated and PCP may need to pursue additional diagnostics outpatient I advised leg elevation when possible and compression stockings which spouse was in agreement with the. The patient himself mostly focused on low back pain since the fall. There has been really able to give him much accept Tylenol which does not help. We discussed the administration of low-dose infrequent intermittent ibuprofen only as needed as well as warming pad topical analgesics like lidocaine patch etcetera Preliminary Favored Differential Diagnosis: [ ] among additional considered etiologies Testing Interpreted Independently: ?See below for details Radiology or Lab testing Results Reviewed: ?See below for details Consults: ?See below for details Independent Historians/External Chart Reviews: ?See below for details Social Determinants of Health Impacting MDM/Planning: ?See below for details Lab Data 02/28/25 18:48 02/28/25 18:48 Labs: Lab Results 02/28/25 Range/Units 18:48 WBC 4.7 L (4.8-10.8) X10*3/uL RBC 3.95 L (4.60-5.80) X10*6/uL Hgb 12.6 L (14.0-18.0) g/dl Hct 38.9 L (42.0-52.0) % MCV 98.5 H (80.0-98.0) fL MCH 31.9 (27.0-33.0) pg MCHC 32.4 (31.0-36.0) g/dl RDW 13.4 (11.0-16.0) % Plt Count 228 (160-400) X10*3/uL MPV 10.9 (9.4-12.4) fL Immature Gran % (Auto) 0.2 (0.0-0.4) % Neut % (Auto) 59.8 (45-73) % Lymph % (Auto) 28.7 (20-40) % Norman % (Auto) 8.6 (2-11) % Eos % (Auto) 1.9 (0-4) % Baso % (Auto) 0.8 (0-2) % Lymph # (Auto) 1.4 (1.2-4.9) X10*3/uL Norman # (Auto) 0.4 (0.1-1.2) X10*3/uL Eos # (Auto) 0.1 (0.0-0.4) X10*3/uL Baso # (Auto) 0.0 (0.0-0.2) X10*3/uL Abs Immat Gran (auto) 0.01 (0.00-0.03) X10*3/uL Absolute Neuts (auto) 2.8 (2.0-8.3) x10*3/uL Absolute Nucleated RBC 0.000 (0.0-0.012) X10*3/uL Nucleated RBC % (auto) 0.0 (0.0-0.2) /100WBC Sodium 143 (135-145) mmol/L Potassium 4.2 (3.3-5.1) mmol/L Chloride 110 H (96-108) mmol/L Carbon Dioxide 25 (22-29) mmol/L Anion Gap 12 (12-20) BUN 23 H (9-16) mg/dL Creatinine 0.85 (0.5-1.4) mg/dL Estim Creat Clear Calc 76.4 Estimated GFR > 60 Random Glucose 102 (60-115) mg/dL Calcium 8.9 (8.4-10.2) mg/dL Magnesium 2.2 (1.6-2.6) mg/dL Total Bilirubin 0.6 (0.0-1.0) mg/dL AST 40 H (5-37) U/L ALT 45 H (0-40) U/L Alkaline Phosphatase 117 (39-117) U/L NT-Pro-B Natriuret Pep 439.2 H (<300) pg/mL Total Protein 6.5 (6.5-8.0) g/dL Albumin 4.2 (3.5-5.0) g/dL Discharge Plan Discharge Clinical Impression: Edema, Back pain Patient Disposition: Home, Self-Care Instructions: Edema (ED) Additional Instructions: Ultrasound has excluded blood clot as a cause of the your leg swelling. There are many other causes that may need to be looked into as an outpatient. Compression stockings and leg elevation as tolerated was recommended For the low back pain from the recent fallen injury we recommend medication only as needed. Ibuprofen 200-400 mg every 6 hours only he is complaining of significant pain. In between this you can use Tylenol. I would not recommend giving regular ibuprofen for longer than 4 or 5 days. Only give it as needed. Warming pad massage and other analgesics may help as well. Prescriptions: No Action albuterol sulfate 90 mcg/actuation HFA aerosol inhaler 2 puff inhalation Q4-6H PRN (Reason: shortness of breath or wheezing) Qty: 8.5 0RF Interventions: ED Discharge Assessment Last Done: 02/28/25 23:15 Discharge Date/Time: 02/28/25 23:15 Print Language: Armenian
[2025-02-28 18:52] LABS: MANUAL DIFF FLAG NO
[2025-02-28 18:55] LABS: Hematocrit 38.9 % (42.0-52.0); Hemoglobin 12.6 g/dl (14.0-18.0); Imm Gran Abs Auto 0.01 X10*3/uL (0.00-0.03); Imm Gran Pct Auto 0.2 % (0.0-0.4); Lymphocytes Absolute Auto 1.4 X10*3/uL (1.2-4.9); Mean Corpuscular HGB Conc 32.4 g/dl (31.0-36.0); Mean Corpuscular Hemoglobin 31.9 pg (27.0-33.0); Mean Corpuscular Volume 98.5 fL (80.0-98.0); NRBC Abs Auto 0.000 X10*3/uL (0.0-0.012); NRBC Pct Auto 0.0 /100WBC (0.0-0.2); Platelet Count 228 X10*3/uL (160-400); Red Blood Count 3.95 X10*6/uL (4.60-5.80); White Blood Count 4.7 X10*3/uL (4.8-10.8)
[2025-02-28 19:09] LABS: Alanine Aminotransferase 45 U/L (0-40); Albumin Level 4.2 g/dL (3.5-5.0); Alkaline Phosphatase 117 U/L (39-117); Anion Gap 12 (12-20); Aspartate Amino Transferase 40 U/L (5-37); Blood Urea Nitrogen 23 mg/dL (9-16); Calcium 8.9 mg/dL (8.4-10.2); Carbon Dioxide 25 mmol/L (22-29); Chloride 110 mmol/L (96-108); Creatinine Clr Calc Pharmacy 76.4; Estimated Glomerular Filt Rate > 60; Magnesium 2.2 mg/dL (1.6-2.6); Potassium 4.2 mmol/L (3.3-5.1); Sodium 143 mmol/L (135-145); Total Protein 6.5 g/dL (6.5-8.0)
[2025-02-28 19:16] LABS: NT Pro B Type Natriuretic Pept 439.2 pg/mL (<300)
--- OUTSIDE RECORDS SUMMARY | 2025-02-28 19:47 | XMS_ITS | Data Portability ---
Author Organization Formerly [facility] [employer] Address [address] [facility] [place] [address] Care Team Providers Care Patient Sitter Name Role Phone DANIAL WAGNER Referring Provider DANIAL WAGNER Primary Care Provider [phone] Assessment Encounter Date Assessment Date Assessment LastModified [...] can discuss directly questions that they have. >>>>>>>>>>>>[facility] Exam is not prototypical for the [...] a day shortly under the management of [facility]. 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 Patient Instructions Encounter Date Encounter Id Patient Instructions Last Modified By Organization Details Last Modified Time 03/15/2024 [id number] Discussion acros s issues of diagnoses and management and same day associated chart review and management greater than 50% greater than 90 minutes [email or web address] Not available 03/15/2024 18:07:56 06/26/2024 [id number] Discussion acros s issues of diagnoses and management and same day associated chart review and management greater than 50% greater than 40 minutes [email or web address] Not available 06/26/2024 17:29:25 09/27/2024 [id number] Discussion acros s issues of diagnoses and management and same day associated chart review and management greater than 50% greater than 40 minutes [email or web address] Not available 09/27/2024 10:51:01 11/15/2024 [id number] Discussion acros s issues of diagnoses and management and same day associated chart review and management greater than 50% greater than 40 minutes [email or web address] Not available 11/15/2024 12:37:52 01/09/2025 [id number] Discussion acros s issues of diagnoses and [...] 01/09/2025 DATA REVIEW completed Joey Marques MD [address] [place], [place] [address], [phone], [facility] 01/09/2025 14:43:30 11/15/2024 DATA REVIEW completed Joey Marques MD [address] [place], [place] [address], [phone], [facility] 11/15/2024 12:37:52 09/27/2024 DATA REVIEW completed Joey Marques MD [address] [place], [place] [address], [phone], [facility] 09/27/2024 10:51:00 06/26/2024 DATA REVIEW completed Joey Marques MD [address] [place], [place] [address], [phone], [facility] 06/26/2024 16:36:50 03/15/2024 DATA REVIEW completed Joey Marques MD [address] [place], [place] [address], [phone], [facility] 03/15/2024 16:38:09 Imaging Results None recorded. Procedure [...] Updated DateTime 03/15/2024 12 /min Sydnie Mahoney [facility] 03/15/2024 14:47:57 Social History Question Answer Notes LastModified by Organizat ion Details LastModified Time Tobacco Smoking Status Never Smoker Sydnie Mahoney otilia [facility] 03/15/2024 14:49:57 What Is Your Level [...] Reported. Medical History Condition Response Claustrophobia N Head Trauma/Injury N Hospitalizations N High Blood Pressure or Hypertension N Thyroid Problems N Depression N Brain Tumors N Lung Disease N COPD or emphysema N Encephalitis N PTSD N Vitamin B12 deficiency N Heart Attack (PA) N Spine Problems N Obstructive Sleep Apnea N Alcoholism N Diabetes N Autoimmune disease N Bleeding Disorder N Arthritis N Cerebral Palsy N Tuberculosis N Developmental Problems N Neck Problems N Cancer N Back Problems N Stroke N Asthma N Heartburn, acid reflux, GERD N Vitamin D Deficiency N Epilepsy/Seizures N Bipolar Disorder N Sleep Disorder N Aneurysm N Hepatitis N Liver Disease N Heart Disease N Fibromyalgia N Headaches N High Cholesterol or Hyperlipidemia N Osteoporosis N Kidney Disease N Past Encounters Encounter ID Performer Location Encounter Start Date Encounter Closed Date Diagnosis/Indication Diagnosis SNOMED-CT Code Diagnosis ICD10 Code Diagnosis IMO Codes Diagnosis Note [id number] Joey Marques MD [facility] [address] [place] [address] [place] [address] 03/15/2024 14:42:27 03/20/2024 15:09:12 Parkinson's disease 26213423 G20.A1 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 [id number] Joey Marques MD [facility] [address] [place] [address] [place] [address] 06/26/2024 16:18:37 06/26/2024 17:32:37 Parkinson's disease 21597182 G20.A1 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 1165384 G21.4 [id number] oJey Marques MD [facility] [address] [place] [address] [place] [address] 09/27/2024 10:23:32 09/27/2024 12:06:53 Vascular parkinsonism 037000427 G21.4 [id number] Joey Marques MD [facility] [address] [place] [address] [place] [address] 11/15/2024 12:14:02 11/17/2024 15:04:25 Vascular parkinsonism [id number] G21.4 [id number] Joey Marques MD [facility] [address] [place] [address] [place] [address] 01/09/2025 13:57:32 01/14/2025 17:00:02 Vascular parkinsonism 133518232 G21.4 Health Concerns Section Related Observation LastModified by Organization Detai ls LastModified Time None Recorded Concern Status LastModified by Organization Details LastModified Time None Recorded Advance Directives Directive None Recorded Payers Insurance Date Sequence Insurance Name Policy Number Policy Eduardo Covered Member ID Eduardo Member ID Guarantor Name 01/14/2025 1 [place] (MEDICARE REPLACEMENT HMO) [id number] Luther Taylor [id number] Luther Taylor Notes Date Note Type [...] his living time in his house in [place] and in house of significant other, more recently starting to move into significant other's house; He is accompanied by Bessy Biswas, significant other of 32 years; and daughter, Maryuri Reich, on telemedicine from [place].>>>>>>>>>>>> March 15, 2024 presenting symptomotology:He is unsure [...] not part of him. Joey Marques MD [address] [place] [address] [place], [phone], [facility] 03/15/2024 18:08:26 06/26/2024 text/html Neurology follow-upof: ~2019 [...] his living time in his house in [place] and in house of significant other, more recently starting to move into significant other's house; He is accompanied by Bessy True, significant other of 32 years; and daughter, Maryuri Reich, on telemedicine from [place]. >>>>>>>>>>>>June 26, 2024Since March 15, 2024 Inititial [...] not part of him. Joey Marques MD [address] [place] [address], [phone], [facility] 06/26/2024 17:29:49 09/27/2024 text/html Neurology follow-upof: ~2019 [...] his living time in his house in [place] and in house of significant other, more recently starting to move into significant other's house; He is accompanied by Bessy Biswas, significant other of 32 years; and daughter, Maryuri Reich, on telemedicine from [place]. >>>>>>>>>>>>September 27, 2024Since June 26, 2024 Neurology [...] not part of him. Joey Marques MD [address] [place], [place] [address], [phone], [facility] 09/27/2024 11:37:43 11/15/2024 text/html Neurology follow-upof: ~2019 [...] his living time in his house in [place] and in house of significant other, more recently starting to move into significant other's house; He is accompanied by Bessy Biswas, significant other of 32 years; and daughter, Maryuri Reich, on telemedicine from [place]. >>>>>>>>>>>>November 15, 2024Since September 27, 2024 Neurology [...] how he felt on full dosag [facility] 2024 pt's left , stated he is experiencing worse nausea, dizziness, and balance is worse than before. He, in general, doesn't feel as well as he was on the previous dose of medication. [facility] 2024 Pt wished to return to his original level of carbidopa levodopa, spouse wants to reverse the titration to get back to original dose.>>>>>>>>>>>>>> I responded>>>>>>>>>>>> >>>> [facility] 2024 please ask him exactly what dose [...] and dizziness>>>>>>>>>>>> >> patient's partner >>>>>>>>>>>>>>>> [facility] 2024 pt is taking 1 1/2 tab [...] is back to his original dosage [facility] 2024Pt's spouse called. Pt had apt with PCP. His urinalysis was negative. PCP performed EKG, Echocardiogram, put in a order for PT, and ordered bloodwork. He also prescribed mirtazatine 15 mg.>>>>>>>>>>>>>> patient's PCP >>>>>>>>>>>>>>>> [facility] 2024 pt dtr called. stated pt went [...] and confirm everything>>>>>>>>>>> >>> I responded>>>>>>>>>>>> >>>> [facility] 2024 ask him and daughter what symptoms [...] not part of him. Joey Marques MD [address] [place] [address] [place], [address], [facility] 11/15/2024 13:19:23 01/09/2025 text/html Neurology follow-upof: ~2019 [...] his living time in his house in [place] and in house of significant other, more recently starting to move into significant other's house; He is accompanied by Bessy Biswas, significant other of 32 years; and daughter, Maryuri Reich, on telemedicine from [place]. >>>>>>>>>>>>January 09, 2025Since November 15, 2024 Neurology [...] sleeping well. He is not having any hallucinations.[facility] has brought in [facility] home care. There has been an evaluation by a visiting nurse just a few days ago. He is starting physical therapy twice a week and [facility] homecare will reevaluate in 1 month.His partner is frequently feeling overwhelmed in her role as a caregiver. She did not mention that to [facility] during their evaluation. I encouraged her [...] how he felt on full dosag [facility] 2024 pt's left , stated he is experiencing worse nausea, dizziness, and balance is worse than before. He, in general, doesn't feel as well as he was on the previous dose of medication. [facility] 2024 Pt wished to return to his original level of carbidopa levodopa, spouse wants to reverse the titration to get back to original dose.>>>>>>>>>>>>>> I responded>>>>>>>>>>>> >>>> [facility] 2024 please ask him exactly what dose [...] and dizziness>>>>>>>>>>>> >> patient's partner >>>>>>>>>>>>>>>> [facility] 2024 pt is taking 1 1/2 tab [...] 15 mg.>>>>>>>>>>>>>> patient's PCP >>>>>>>>>>>>>>>> [facility]tr [facility]. stated pt [...] everything>>>>>>>>>>> >>> I responded>>>>>>>>>>>> >>>> [facility] 20[facility] ask him and daughter what [...] not part of him. Joey Marques MD [address] [place] [address] [place], [phone], [facility] 01/09/2025 15:24:15
[2025-02-28 19:52] VITALS: BP 155/79; PULSE 74; RESP 12; TEMP 36.4; O2SAT 97
[2025-02-28 23:15] VITALS: BP 155/79; PULSE 74; RESP 12; TEMP 36.4; O2SAT 97
== END 2025-02-28 23:15 | disposition home or self-care (01) ==
PROVIDERS: Physician Assistant Medical; Emergency Provider Emergency Medicine
DX: M79.89 Other specified soft tissue disorders (principal); M54.9 Dorsalgia, unspecified
CPT/HCPCS: 36415; 80053; 83735; 83880; 85025; 93970; 99284

== ENCOUNTER → 2025-02-28 18:36 | Outpatient (BNV) | payer MEDICARE, SELFPAY | PROVIDERS: Visit Provider Student in an Organized Health Care Education/Training Program | DX: M79.89 Other specified soft tissue disorders (principal) | CPT/HCPCS: 93970 ==

== ENCOUNTER 2025-04-12 10:21 | Emergency (ER) | payer MEDICARE, SELFPAY ==
--- OUTSIDE RECORDS SUMMARY | 2025-04-09 23:59 | XMS_ITS | Continuity of Care Document ---
Author Organization [facility] ter Address [address] [place] [address]- Care Team Providers Care Local Owner Operator Truck Driver Name Role Phone Hillary MENCHACA, Chandana Arambula Primary Care Physician Encounter [facility] Date(s): 03/10/25 - 04/09/[address] [address] Encounter Type: Triage Allergies, Adverse Reactions, Alerts [...] [02/10/2018] high does 2Result Comment: [03/10/2017] Fluad [id number] [facility] 3Result Comment: [02/25/2016] Given at [facility] [place] 4Result Comment: [01/09/2013] vis given 5Admin Note: [facility] [place] 6Admin Note: fabby 7Admin Note: [employer] [facility] 03/12/08 Medications carbidopa-levodopa 25 mg-100 mg oral tablet See Instructions, 0.5 tablet By Mouth 3 times a day x1 week; then increase to 1 tablet By Mouth 3 times a day, # 90 tablet, 3 Refills, Maintenance, 03/04/25 9:28:00 AM EST, Tablet, [facility], Partial fill upon patient request if the prescription is for a schedule II opioid drug., 0.5 tablet By Mouth 3 times a day x1 week; then increase to 1 tablet By Mouth 3 times a day, 182, cm, 03/04/25 8:53:00 EST, Height Start Date: 03/04/25 Status: Ordered Medication Dispense Status: Completed Quantity: 90.0 Unit: tablet Total Allowed Fills: 4 Fills Dispensed: 0 mirtazapine 15 mg oral tablet 1 tablet = 15 mg, By Mouth, Daily at bedtime, # 30 tablet, 11 Refills, Maintenance, 10/19/24 4:22:00PM EDT, Tablet, [facility], Partial fill upon patient request if the prescription is fora schedule II opioid drug., 182, cm, 10/19/24 15:58:00 EDT, Height Start Date: 10/19/24 Status: Ordered Medication Dispense Status: Completed Quantity: 30.0 Unit: tablet Total Allowed Fills: 12 Fills Dispensed: 0 Indications: Unspecified mood [affective] disorder; oxyCODONE 5 mg oral tablet 5 mg, 1, tablet, By Mouth, 2 times a day, PRN, # 30 tablet, Refills 0, Tot. Refills 0, Acute 04/19/25 9:40:00 AM EST, for pain, 04/04/25 9:50:00 AM EST, Route to Pharmacy Electronically, [facility], Partial fill upon patient request if the prescription is for a schedule II opioid drug., 182, cm, 03/18/25 8:57:00 EST, Height Start Date: 04/04/25 Stop Date: 04/19/25 Status: Ordered Medication Dispense Status: Completed Quantity: 30.0 Unit: tablet Total Allowed Fills: 1 Fills Dispensed: 0 Indications: Dorsalgia, unspecified; Saw [place] 2 times a day, 0 Refills, Maintenance, 11/26/20 10:12:00 AM EDT, Partial fill upon patient request ifthe prescription is for a schedule II opioid drug. 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 Preferred pronoun: He/Him/His. Smoking Status Never smoker entered on: 11/16/13 Sex Male Sex Representation Male (finding) Patient Care team information Care Team Personnel Name: Chandana Thornton MD Position: [facility] Physician - Primary Care Member Role: PCP Address: [address] [place] [address] Telecom: Care Team Related Persons Name: CALLY WU Name: DALTON SWANN Insurance Providers Guarantor name: LAUREL REYES [employer] Plan Information #: 1 Payer: [facility] Payer Identifier: NA Member Number: [id number] Group Number: [id number] Subscriber Identifier: NA Relationship to Subscriber: self Coverage Type: Medicare HMO Coverage Verification Date: NA Telecom: NA Address:
--- NOTE | ~2025-04-12 | CT_ITS ---
EXAMINATION: CT HEAD WITHOUT CONTRAST CLINICAL INFORMATION: Fall with head trauma COMPARISON: 02/19/2025 TECHNIQUE: Contiguous axial imaging was performed from the skull base to vertex without intravenous administration of contrast. This CT examination was performed using dose optimization techniques as appropriate, variously including the following: *Automated exposure control *Adjustment of mA and/or kV according to patient size (this includes techniques or standardized protocols for targeted exams where dose is matched to indication/reason for exam; i.e. extremities or head) *Use of iterative reconstruction technique FINDINGS: There is no acute ischemic change. There is no intracranial hemorrhage. There is no mass-effect or midline shift. Moderate generalized atrophy is present. Basal cisterns and ventricles are within normal limits for age/cerebral volume. Orbits are symmetrical and unremarkable. Paranasal sinuses and mastoid air cells are pneumatized. There are no bony abnormalities. CT/CT head/brain wo IV con IMPRESSION: No acute intracranial abnormality. Electronically signed by: Sai Lewis MD 04/12/2025 12:54 PM [facility]
--- NOTE | ~2025-04-12 | CT_ITS ---
EXAMINATION: CT lumbar spine without contrast. CLINICAL INDICATION: Mid low back pain since prior fall. COMPARISON: None. TECHNIQUE: 2 mm thin axial and reformatted 2 mm thin sagittal and coronal images of lumbar spine were obtained. One or more of the following dose reduction techniques were used: Automated exposure control, adjustment of the mA and/or kV according to patient size, and/or iterative reconstruction. DLP 895 mGy/cm. FINDINGS: On sagittal reconstructed images there is maintained lumbar lordosis. The vertebral heights are preserved. The grade 1 retrolisthesis L3 over L4. Rest of the alignment is normal. There are inferior endplate Schmorl's node L1 and superior endplate Schmorl's node L2 vertebra with endplate sclerosis. There is moderate to large ventral bridging ventral spondylosis L2-L3, L4-5 and L5-S1 disc levels. At the 12-L1 disc level is unremarkable. At L1-2 disc level there is mild posterior spondylosis/bulge complex resulting in mild concentric canal stenosis or neural foramina are bilaterally narrowed from posterior spondylosis. All ventral vacuum disc phenomena is noted. At L2-3 disc level there is a broad-based diffuse bulge/posterior spondylosis complex without spinal canal stenosis. The neural foramina are somewhat patent bilaterally. At L3-4 disc level there is mild to central canal stenosis from facet joint and ligamentum flavum hypertrophy. There is mild posterior spondylosis as well. The neural foramina are mildly narrowed bilaterally. At L4-5 disc level there is a broad-based diffuse bulge/osteophyte complex with mild concentric spinal canal stenosis. The neural foramina are patent At L5-S1 disc level there is bilateral facet joint and ligament hypertrophy with transient spinal canal stenosis. There is mild underlying disc bulge/osteophyte complex. Bilateral mild neural foraminal narrowing is noted. Incidental finding of bilateral multiple renal cysts are noted. The paravertebral soft tissues are normal. The abdominal aorta is of normal caliber. The posterior CP angles are clear. No aggressive lytic or sclerotic process seen. Especially no acute fracture is suspected. CT/CT lumbar spine wo IV con IMPRESSION: Moderate ventral and mild posterior spondylosis with no visible acute fractures seen. No lytic or sclerotic process except for endplate Schmorl's node as described above. There is mild circumferential canal stenosis at several disc level secondary to disc bulge/osteophyte complex. Mild bilateral neural foraminal narrowing is seen throughout the lumbar disc levels. Electronically signed by: João Anderson MD 04/12/2025 03:38 PM EST
--- NOTE | ~2025-04-12 | CT_ITS ---
EXAMINATION: CT CERVICAL SPINE WITHOUT CONTRAST CLINICAL INFORMATION: Fall COMPARISON: 02/19/2025 TECHNIQUE: Axial imaging was performed from the base of the skull through T2 without IV contrast. Coronal and sagittal reformatted images were generated from the original axial data set. ALARA: The examination used one or more of the following radiation dose reduction techniques: Automated exposure control, iterative reconstruction, and/or adjustment of mA and/or KV. FINDINGS: Again seen are large anterior osteophytes between C4-T2. There is stable mild to moderate disc space narrowing at C6-7, mild narrowing at C7-T1, and moderate to severe narrowing at T1-T2. 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 There are osteophytes, sclerosis, joint space narrowing, and vacuum phenomena. There are also facet osteophytes throughout the cervical spine. There are varying degrees of foraminal narrowing throughout the cervical spine, most severe at C3-4 on the right. No fracture lines are evident. There is atherosclerotic calcification in the carotid bulbs. Lung apexes are unremarkable. There is vacuum phenomenon and moderate to severe degenerative change in the sternoclavicular joints. CT/CT cervical spine wo IV con IMPRESSION: No acute bony abnormality. 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 Electronically signed by: Sai Lewis MD 04/12/2025 12:51 PM [facility]
[2025-04-12 10:29] VITALS: BP 130/74; BP 134/73; PULSE 67; PULSE 72; RESP 16; TEMP 36.6; O2SAT 100; O2SAT 98; BMI 30.7
[2025-04-12 10:33] VITALS: BP 134/73; PULSE 72; RESP 16; TEMP 36.6; O2SAT 98
--- NOTE | 2025-04-12 10:35 | PC.NURSE ---
ALEXANDRE from home. Patient tripped on walker and fell. +HS, no external trauma noted Denies LOC, pain, SOB, chest pain, thinners, and N/V. Patient in c-collar. VSS and up to date Provider in to see patient plan of care on going
--- NOTE | 2025-04-12 11:11 | ED_ITS ---
HPI - Fall General Chief Complaint: Fall Stated Complaint: MULTIPLE FALLS Time Seen by Provider: 04/12/25 11:02 History of Present Illness HPI Narrative: Author / Clinician: Thomas Ignacio MD (Emergency Medicine) Chief Complaint Ground-level fall with head impact; evaluation for head injury. Reports new bilateral lower-extremity swelling. History of Present Illness The patient reports tripping over a walker earlier today while rushing to the bathroom because his partner (?Bessy?) had an appointment in the room. He fell onto his right side and struck the right side of his head on the floor. Significant other assisted him to standing; EMS was not activated. He denies presyncope, loss of consciousness, or light-headedness before the fall. No current headache or neck pain. He is not on anticoagulation or antiplatelet therapy. He has noticed new swelling of both lower legs and ankles that began approximately one month ago; he denies any prior history of leg swelling. He notes mild redness and warmth over the right foot today, which he has not noticed previously. He endorses chronic low back pain (baseline, ?hurts all the time?) in the lumbar region. Review of Systems - Constitutional: No complaints reported. - Neurologic: Denies headache, dizziness, loss of consciousness, or focal weakness. - Head/Neck: Denies neck pain. - Cardiovascular: Denies known heart disease or hypertension. - Musculoskeletal: Reports chronic low back pain; denies acute hip pain. - Skin: Notes new redness/warmth over right foot today; denies prior episodes. Physical Examination Vital Signs: Physical Exam: - Head: 2 cm abrasion/contusion to right frontal-parietal scalp; small abrasion left forehead. - Neck: C-collar in place; no midline cervical tenderness. - Neurologic: - Upper extremity strength 5/5 bilaterally. - Lower extremity strength 5/5 bilaterally. - Facial symmetry intact. - Chest/Lungs: Clear to auscultation bilaterally; no chest wall tenderness. - Cardiovascular: Heart sounds not specifically documented; no mention of murmur. - Abdomen: Nontender. - Pelvis: Stable to rocking. - Extremities: No deformities or focal tenderness. Mild bilateral ankle/pedal edema. Mild redness and warmth noted over right foot/ankle. - Back: No midline spinal tenderness or bruising. Reports chronic low lumbar pain. Emergency Department Course Assessment & Plan Diagnosis: Plan: Disposition Social History Patient lives in a house with his significant other; does not live alone. Ambulates with a walker. Related Data Previous Rx's ?Medication ?Instructions ?Recorded albuterol sulfate 90 mcg/actuation 2 puff inhalation Q 4-6H PRN 12/26/23 aerosol inhaler shortness of breath or wheez ing #8.5 grams cefadroxil 500 mg capsule 500 mg PO BID 5 days #10 cap s 04/12/25 Allergies Allergy/AdvReac Type Severity Reaction Status Date / Time No Known Allergies Allergy Verified 04/12/25 10:30 [facility] Social History Social History Alcohol intake: never Patient Tobacco Use Status: Never used Tobacco Physical Exam 2 Exam: Exam: EXAM: Gen: Alert, awake, well appearing, well hydrated. Head: Atraumatic Eyes: Anicteric, Normal conjunctiva. ENT: Moist mucosa, no pallor. Neck: Supple. Respiratory: Breathing comfortably, No distress.Clear to auscultation bilaterally, symmetric chest expansion, No wheeze, rales, ronchi. Cardiovascular: Regular rate and rhythm. No murmurs or rub. Well perfused periphery, warm extremities. No edema. Abdominal: Soft, no objective distension. No palpable masses or obvious organomegaly. No focal tenderness, no guarding, no rebound tenderness or other peritoneal findings. : No flank tenderness. Neuro: Alert. Gross movement of all extremities intact. MSK/Skin: Moderate and symmetric edema to the ankles and dorsum of the feet. Right side mildly warm, no obvious breaks in the skin. Well-perfused digits with intact DP pulses. No calf tenderness, lymphingetic streaking or redness up the leg. Mobile joints. No gross deformities. Vital signs: See flowsheet Vital Signs: Vital Signs: Last Vital Signs Temp 97.5 F 04/12/25 17:56 Pulse 75 04/12/25 17:56 Resp 18 04/12/25 17:56 BP 145/79 H 04/12/25 17:56 Pulse Ox 97 04/12/25 17:56 O2 Del Method Room Air 04/12/25 17:56 BMI result Body Mass Index 30.7 Medications Administered Discontinued Medications Generic Name Dose Route Start Last Admin Trade Name Freq PRN Reason Stop Dose Admin Cephalexin HCl 500 mg 04/12/25 12:13 04/12/25 13:44 Cephalexin 500 Mg Capsule PO 04/12/25 12:14 500 mg ONCE ONE Administration Cyclobenzaprine HCl 10 mg 04/12/25 13:23 04/12/25 13:44 Cyclobenzaprine Hcl 10 Mg Tablet PO 04/12/25 13:24 10 mg ONCE ONE Administration Dexamethasone Sodium Phosphate 8 mg 04/12/25 13:23 04/12/25 13:44 Dexamethasone Sod Phosphate 4 Mg/Ml Vial IVPUSH 04/12/25 13:24 8 mg ONCE ONE Administration Ketorolac Tromethamine 10 mg 04/12/25 13:23 04/12/25 13:44 Ketorolac Tromethamine 15 Mg/Ml Vial IVPUSH 04/12/25 13:24 10 mg ONCE ONE Administration Lidocaine 1 patch 04/12/25 13:23 04/12/25 13:44 Lidocaine 4 % Patch Adh..Patch TRANSDERMA 04/12/25 13:24 1 patch ONCE ONE Administration Protocol Ondansetron HCl 4 mg 04/12/25 15:10 04/12/25 15:32 Ondansetron Hcl 4 Mg/2 Ml Vial IVPUSH 04/12/25 15:11 4 mg ONCE ONE Administration Medical Decision Making Medical Decision Making MDM Narrative: 89 year old male with clear non-syncopal fall. No obvious major injuries identified, head and cervical CT without acute traumatic findings. Patient has chronic back pain since a fall in January in the lumbar region. He has no acute trauma to this area at this time. But it feels he's somewhat deconditioned or having more falls or unsteadiness due to this chronic back pain. Previous lumbar x-ray without injury of the bones. He has no red flags signs or symptoms to suggest acute cord equina syndrome or cord compression and he has strong lower extremities. He does have some edema lower extremities unclear etiology could be dependent edema. He certainly doesn't appear fluid overloaded. Some mild erythema on the right side. I'll treat him empirically for cellulitis. Stockings leg elevation recommended. Doubt DVT given the symmetric nature and lack of risk factors during the ED course. Patient's arrived and was concerned about low back pain given the patient's age. I felt it reasonable to exclude a goyo lumbar or sacral spinal fracture from the prior injury with CT. This was excluded. There's certainly plenty of degenerative disease to explain the patient's pain and he's likely having trouble recovering because of this. He already has visiting physical therapy in the house. Pain reasonably well controlled in the ED. Lab Data 04/12/25 11:30 04/12/25 11:30 Labs: Lab Results 04/12/25 Range/Units 11:30 WBC 4.3 L (4.8-10.8) X10*3/uL RBC 3.97 L (4.60-5.80) X10*6/uL Hgb 12.8 L (14.0-18.0) g/dl Hct 38.0 L (42.0-52.0) % MCV 95.7 (80.0-98.0) fL MCH 32.2 (27.0-33.0) pg MCHC 33.7 (31.0-36.0) g/dl RDW 13.0 (11.0-16.0) % Plt Count 181 (160-400) X10*3/uL MPV 11.0 (9.4-12.4) fL Immature Gran % (Auto) 0.2 (0.0-0.4) % Neut % (Auto) 71.5 (45-73) % Lymph % (Auto) 18.8 L (20-40) % [place] % (Auto) 7.7 (2-11) % Eos % (Auto) 0.9 (0-4) % Baso % (Auto) 0.9 (0-2) % Lymph # (Auto) 0.8 L (1.2-4.9) X10*3/uL [place] # (Auto) 0.3 (0.1-1.2) X10*3/uL Eos # (Auto) 0.0 (0.0-0.4) X10*3/uL Baso # (Auto) 0.0 (0.0-0.2) X10*3/uL Abs Immat Gran (auto) 0.01 (0.00-0.03) X10*3/uL Absolute Neuts (auto) 3.1 (2.0-8.3) x10*3/uL Absolute Nucleated RBC 0.000 (0.0-0.012) X10*3/uL Nucleated RBC % (auto) 0.0 (0.0-0.2) /100WBC Sodium 141 (135-145) mmol/L Potassium 3.9 (3.3-5.1) mmol/L Chloride 107 (96-108) mmol/L Carbon Dioxide 28 (22-29) mmol/L Anion Gap 10 L (12-20) BUN 16 (9-16) mg/dL Creatinine 0.77 (0.5-1.4) mg/dL Estim Creat Clear Calc 80.6 Estimated GFR > 60 Random Glucose 88 (60-115) mg/dL Calcium 9.1 (8.4-10.2) mg/dL Magnesium 2.1 (1.6-2.6) mg/dL Total Bilirubin 0.7 (0.0-1.0) mg/dL Direct Bilirubin 0.3 (0.0-0.5) mg/dL AST 31 (5-37) U/L ALT < 6 (0-40) U/L Alkaline Phosphatase 194 H (39-117) U/L C-Reactive Protein 0.59 H (< or = 0.50) mg/dL NT-Pro-B Natriuret Pep 423.4 H (<300) pg/mL Total Protein 6.2 L (6.5-8.0) g/dL Albumin 4.1 (3.5-5.0) g/dL Procalcitonin 0.02 ng/mL Discharge Plan Discharge Clinical Impression: Edema, Cellulitis, Degenerative joint disease (DJD) of lumbar spine, Spinal stenosis Patient Disposition: Home, Self-Care Instructions: Cellulitis (ED), Edema (ED) Additional Instructions: _ DISCHARGE DIAGNOSES: Edema or swelling of both your legs unclear cause at this time Cellulitis skin infection of the right ankle unclear source Fall without significant sustained injuries 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 You had some redness of the skin warmth in the right side and we will start treatment for cellulitis which was initiated in the ER DISCHARGE MEDICATIONS: ?[We have made no changes to your regular medication regimen] cefadroxil for the next 5 days to your other medications FOLLOW-UP: ?Call your primary or general physician soon as possible to discuss your symptoms, your ED visit and to discuss follow up plans Call your primary doctor you should be seen in 3-5 days to reassess the swelling of the legs as you may need further outpatient testing nonemergent leg ultrasound if the swelling does not improve or becomes more predominant on 1 side INSTRUCTIONS ?& RETURN PRECAUTIONS: If any symptoms change first call your primary physician, if it is after-hours your primary doctors office should have a provider saloon keeper you can speak with. If the symptoms are severe or very concerning to you then call 911 or return to the ED. Try to get yourself compression stockings in the pharmacy where these daily put your legs up at about heart level when resting at home decrease your salt intake drank maximally 1.5 L of water daily ___ CT of the lumbar spine shows findings below that can be discussed with your primary doctor IMPRESSION: Moderate ventral and mild posterior spondylosis with no visible acute fractures seen. No lytic or sclerotic process except for endplate Schmorl's node as described above. There is mild circumferential canal stenosis at several disc level secondary to disc bulge/osteophyte complex. Mild bilateral neural foraminal narrowing is seen throughout the lumbar disc levels. Thomas Ignacio MD Emergency Physician [facility] Prescriptions: New cefadroxil 500 mg capsule 500 mg PO BID 5 Days Qty: 10 0RF No Action albuterol sulfate 90 mcg/actuation HFA aerosol inhaler 2 puff inhalation Q4-6H PRN (Reason: shortness of breath or wheezing) Qty: 8.5 0RF Interventions: ED Discharge Assessment Last Done: 04/12/25 17:56 Discharge Date/Time: 04/12/25 17:57 Print Language: Mosotho
[2025-04-12 11:33] LABS: MANUAL DIFF FLAG NO
[2025-04-12 11:35] LABS: Hematocrit 38.0 % (42.0-52.0); Hemoglobin 12.8 g/dl (14.0-18.0); Imm Gran Abs Auto 0.01 X10*3/uL (0.00-0.03); Imm Gran Pct Auto 0.2 % (0.0-0.4); Lymphocytes Absolute Auto 0.8 X10*3/uL (1.2-4.9); Mean Corpuscular HGB Conc 33.7 g/dl (31.0-36.0); Mean Corpuscular Hemoglobin 32.2 pg (27.0-33.0); Mean Corpuscular Volume 95.7 fL (80.0-98.0); NRBC Abs Auto 0.000 X10*3/uL (0.0-0.012); NRBC Pct Auto 0.0 /100WBC (0.0-0.2); Platelet Count 181 X10*3/uL (160-400); Red Blood Count 3.97 X10*6/uL (4.60-5.80); White Blood Count 4.3 X10*3/uL (4.8-10.8)
[2025-04-12 11:57] LABS: NT Pro B Type Natriuretic Pept 423.4 pg/mL (<300)
[2025-04-12 11:58] LABS: Alanine Aminotransferase < 6 U/L (0-40); Albumin Level 4.1 g/dL (3.5-5.0); Alkaline Phosphatase 194 U/L (39-117); Anion Gap 10 (12-20); Aspartate Amino Transferase 31 U/L (5-37); Blood Urea Nitrogen 16 mg/dL (9-16); Calcium 9.1 mg/dL (8.4-10.2); Carbon Dioxide 28 mmol/L (22-29); Chloride 107 mmol/L (96-108); Creatinine Clr Calc Pharmacy 80.6; Estimated Glomerular Filt Rate > 60; Magnesium 2.1 mg/dL (1.6-2.6); Potassium 3.9 mmol/L (3.3-5.1); Sodium 141 mmol/L (135-145); Total Protein 6.2 g/dL (6.5-8.0)
[2025-04-12 12:11] LABS: Procalcitonin 0.02 ng/mL
--- OUTSIDE RECORDS SUMMARY | 2025-04-12 13:06 | XMS_ITS | Data Portability ---
Author Organization [facility] [employer], [employer] Address [address] [facility] [place] [address] Care Team Providers Care Social Organization Professor Name Role Phone DANIAL WAGNER Referring Provider [phone] DANIAL WAGNER Primary Care Provider [phone] Assessment Encounter Date Assessment Date Assessment LastModified [...] can discuss directly questions that they have. >>>>>>>>>>>>[facility] Ex[facility] is not prototypical for [...] a day shortly under the management of [facility]. 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 Patient Instructions Encounter Date Encounter Id Patient Instructions Last Modified By Organization Details Last Modified Time 03/15/2024 [id number] Discussion acros s issues of diagnoses and management and same day associated chart review and management greater than 50% greater than 90 minutes [email or web address] Not available 03/15/2024 18:07:56 06/26/2024 [id number] Discussion acros s issues of diagnoses and management and same day associated chart review and management greater than 50% greater than 40 minutes [email or web address] Not available 06/26/2024 17:29:25 09/27/2024 [id number] Discussion acros s issues of diagnoses and management and same day associated chart review and management greater than 50% greater than 40 minutes [email or web address] Not available 09/27/2024 10:51:01 11/15/2024 [id number] Discussion acros s issues of diagnoses and management and same day associated chart review and management greater than 50% greater than 40 minutes [email or web address] Not available 11/15/2024 12:37:52 01/09/2025 [id number] Discussion acros s issues of diagnoses and [...] 01/09/2025 DATA REVIEW completed Joey Marques MD [address] [place], [place] [address], [phone], [facility] 01/09/2025 14:43:30 11/15/2024 DATA REVIEW completed Joey Marques MD [address] [place], [place] [address], [phone], [facility] 11/15/2024 12:37:52 09/27/2024 DATA REVIEW completed Joey Marques MD [address] [place], [place] [address], [phone], [facility] 09/27/2024 10:51:00 06/26/2024 DATA REVIEW completed Joey Marques MD [address] [place], [place] [address], [phone], [facility] 06/26/2024 16:36:50 03/15/2024 DATA REVIEW completed Joey Marques MD [address] [place], [place] [address], [phone], [facility] 03/15/2024 16:38:09 Imaging Results None recorded. [...] Updated DateTime 03/15/2024 12 /min Sydnie Mahoney [facility] 03/15/2024 14:47:57 Social History Question Answer Notes LastModified by Organizat ion Details LastModified Time Tobacco Smoking Status Never Smoker Sydnie Mahoney otilia [facility] 03/15/2024 14:49:57 What Is Your Level [...] Pressure or Hypertension N Thyroid Problems N Lung Disease N Depression N COPD or emphysema N Brain Tumors N Encephalitis N PTSD N Vitamin B12 deficiency N Heart Attack ([place]) N Spine Problems N Obstructive Sleep Apnea N Alcoholism N Diabetes N Autoimmune disease N Bleeding Disorder N Arthritis N Developmental Problems N Tuberculosis N Cerebral Palsy N Neck Problems N Cancer N Back Problems N Stroke N Asthma N Heartburn, acid reflux, GERD N Vitamin D Deficiency N Epilepsy/Seizures N Bipolar Disorder N Sleep Disorder N Hepatitis N Aneurysm N Liver Disease N Heart Disease N Headaches N Fibromyalgia N Osteoporosis N High Cholesterol or Hyperlipidemia N Kidney Disease N Past Encounters Encounter ID Performer Location Encounter Start Date Encounter Closed Date Diagnosis/Indication Diagnosis SNOMED-CT Code Diagnosis ICD10 Code Diagnosis IMO Codes Diagnosis Note [id number] Joey Marques MD [facility] [address] [place] [address] [place] [address] 03/15/2024 14:42:27 03/20/2024 15:09:12 Parkinson's disease 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 [id number] Joey Marques MD [facility] [address] [place] [address] [place] [address] 06/26/2024 16:18:37 06/26/2024 17:32:37 Parkinson's disease 16123334 G20.A1 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 8935512 G21.4 [id number] Joey Marques MD [facility] [address] [place] [address] [place] [address] 09/27/2024 10:23:32 09/27/2024 12:06:53 Vascular parkinsonism 445110690 G21.4 [id number] Joey Marques MD [facility] [address] [place] [address] [place] [address] 11/15/2024 12:14:02 11/17/2024 15:04:25 Vascular parkinsonism 843262394 G21.4 [id number] Joey Marques MD [facility] [address] [place] [address] [place] [address] 01/09/2025 13:57:32 01/14/2025 17:00:02 Vascular parkinsonism 130467232 G21.4 Health Concerns Section Related Observation LastModified by Organization Detai ls LastModified Time None Recorded Concern Status LastModified by Organization Details LastModified Time None Recorded Advance Directives Directive None Recorded Payers Insurance Date Sequence Insurance Name Policy Number Policy Eduardo Covered Member ID Eduardo Member ID Guarantor Name 01/14/2025 1 [place] (MEDICARE REPLACEMENT HMO) [id number] Luther Taylor [id number] Luther Taylor Notes Date Note Type [...] his living time in his house in [place] and in house of significant other, more recently starting to move into significant other's house; He is accompanied by Bessy Biswas, significant other of 32 years; and daughter, Maryuri Reich, on telemedicine from [place].>>>>>>>>>>>> March 15, 2024 presenting symptomotology:He is unsure [...] not part of him. Joey Marques MD [address] [place] [address] [place], [phone], [facility] 03/15/2024 18:08:26 06/26/2024 text/html Neurology follow-upof: [...] his living time in his house in [place] and in house of significant other, more recently starting to move into significant other's house; He is accompanied by Bessy True, significant other of 32 years; and daughter, Maryuri Reich, on telemedicine from [place]. >>>>>>>>>>>>June 26, 2024Since March 15, 2024 Inititial [...] not part of him. Joey Marques MD [address] [place] [address], [phone], [facility] 06/26/2024 17:29:49 09/27/2024 text/html Neurology follow-upof: [...] his living time in his house in [place] and in house of significant other, more recently starting to move into significant other's house; He is accompanied by Bessy Biswas, significant other of 32 years; and daughter, Maryuri Reich, on telemedicine from [place]. >>>>>>>>>>>>September 27, 2024Since June 26, 2024 Neurology [...] not part of him. Joey Marques MD [address] [place], [place] [address], [phone], [facility] 09/27/2024 11:37:43 11/15/2024 text/html Neurology follow-upof: [...] his living time in his house in [place] and in house of significant other, more recently starting to move into significant other's house; He is accompanied by Bessy Biswas, significant other of 32 years; and daughter, Maryuri Reich, on telemedicine from [place]. >>>>>>>>>>>>November 15, 2024Since September 27, 2024 Neurology [...] how he felt on full dosag J replaced by [facility] 2024 pt's left , stated he is experiencing worse nausea, dizziness, and balance is worse than before. He, in general, doesn't feel as well as he was on the previous dose of medication. J replaced by [facility] 2024 Pt wished to return to his original level of carbidopa levodopa, spouse wants to reverse the titration to get back to original dose.>>>>>>>>>>>>>> I responded>>>>>>>>>>>> >>>> J replaced by [facility] 2024 please ask him exactly what dose [...] and dizziness>>>>>>>>>>>> >> patient's partner >>>>>>>>>>>>>>>> J replaced by [facility] 2024 pt is taking 1 1/2 tab [...] is back to his original dosage J replaced by [facility] 2024Pt's spouse called. Pt had apt with PCP. His urinalysis was negative. PCP performed EKG, Echocardiogram, put in a order for PT, and ordered bloodwork. He also prescribed mirtazatine 15 mg.>>>>>>>>>>>>>> patient's PCP >>>>>>>>>>>>>>>> [facility] 2024 pt dtr called. stated pt went [...] and confirm everything>>>>>>>>>>> >>> I responded>>>>>>>>>>>> >>>> [facility] 2024 ask him and daughter what symptoms [...] not part of him. Joey Marques MD [address] [place] [address] [place], [phone], [facility] 11/15/2024 13:19:23 01/09/2025 text/html Neurology follow-upof: [...] his living time in his house in [place] and in house of significant other, more recently starting to move into significant other's house; He is accompanied by Bessy Biswas, significant other of 32 years; and daughter, Maryuri Reich, on telemedicine from [place]. >>>>>>>>>>>>January 09, 2025Since November 15, 2024 Neurology [...] sleeping well. He is not having any hallucinations.[facility] has brought in [facility] home care. There has been an evaluation by a visiting nurse just a few days ago. He is starting physical therapy twice a week and [facility] homecare will reevaluate in 1 month.His partner is frequently feeling overwhelmed in her role as a caregiver. She did not mention that to [facility] during their evaluation. I encouraged her [...] how he felt on full dosag J replaced by [facility] 2024 pt's left , stated he is experiencing worse nausea, dizziness, and balance is worse than before. He, in general, doesn't feel as well as he was on the previous dose of medication. J replaced by [facility] 2024 Pt wished to return to his original level of carbidopa levodopa, spouse wants to reverse the titration to get back to original dose.>>>>>>>>>>>>>> I responded>>>>>>>>>>>> >>>> J replaced by [facility] 2024 please ask him exactly what dose [...] and dizziness>>>>>>>>>>>> >> patient's partner >>>>>>>>>>>>>>>> J replaced by [facility] 2024 pt is taking 1 1/2 tab [...] prescribed mirtazatine 15 mg.>>>>>>>>>>>>>> patient's PCP >>>>>>>>>>>>>>>> [facility] 2024 pt dtr called. stated pt went [...] and confirm everything>>>>>>>>>>> >>> I responded>>>>>>>>>>>> >>>> [facility] 2024 ask him and daughter what symptoms [...] not part of him. Joey Marques MD [address] [place] [address] [place], [phone], [facility] 01/09/2025 15:24:15
--- NOTE | 2025-04-12 13:21 | PC.NURSE ---
C-Collar removed per MD. Pt cleaned for some incontinence although he is able to request urinal he had difficulty placing it independently. 500 ml urine output
[2025-04-12] MEDS: Lidocaine 4 % Patch ADH..PATCH 1 PATCH TRANSDERMA (13:44)
[2025-04-12 14:27] VITALS: BP 145/79; PULSE 75; RESP 18; TEMP 36.4; O2SAT 97
[2025-04-12 17:56] VITALS: BP 145/79; PULSE 75; RESP 18; TEMP 36.4; O2SAT 97
== END 2025-04-12 17:57 | disposition home or self-care (01) ==
PROVIDERS: Emergency Provider Emergency Medicine
DX: S09.90XA Unspecified injury of head, initial encounter (principal); W01.198A Fall on same level from slipping, tripping and stumbling with subsequent striking against other object, initial encounter; Y93.01 Activity, walking, marching and hiking; Y92.9 Unspecified place or not applicable; Y99.9 Unspecified external cause status; M79.89 Other specified soft tissue disorders
CPT/HCPCS: 36415; 70450; 72125; 72131; 72192; 80048; 80076; 83735; 83880; 84145; 85025; 86140; 96374; 96375; 99284; J1100; J1885; J2405

== ENCOUNTER → 2025-04-12 11:09 | Outpatient (BNV) | payer MEDICARE, SELFPAY | PROVIDERS: Emergency Provider Emergency Medicine; Visit Provider Radiology Diagnostic Radiology | DX: M47.818 Spondylosis without myelopathy or radiculopathy, sacral and sacrococcygeal region (principal); M48.08 Spinal stenosis, sacral and sacrococcygeal region; M47.816 Spondylosis without myelopathy or radiculopathy, lumbar region; M48.061 Spinal stenosis, lumbar region without neurogenic claudication; M50.30 Other cervical disc degeneration, unspecified cervical region; S09.90XA Unspecified injury of head, initial encounter; Z04.3 Encounter for examination and observation following other accident | CPT/HCPCS: 70450; 72125; 72131; 72192 ==